=== PATIENT | female | born 1990 | race American Indian/Alaskan Native ===

== ENCOUNTER 2020-03-10 20:19 | Emergency (ER) | payer MEDICAID ==
[2020-03-10] MEDS ORDERED: Sodium Chloride 0.9% 1,000 ML IV ONE (20:33)
[2020-03-10] MEDS ORDERED: Ketorolac 30 MG/ML SDV IVPUSH ONE (20:33)
--- NOTE | 2020-03-10 20:56 | EDM.PDOC ---
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 Stated Complaint: POSSIBLE IUD FALL OUT Time Seen by Provider: 03/10/20 20:55 - Related Data Allergies Allergy/AdvReac Type Severity Reaction Status Date / Time No Known Allergies Allergy Verified 03/10/20 20:31 Home Meds: Home Meds Labetalol [Normodyne] 100 mg PO BID 02/17/18 [History] Prenat 115/Iron Fum/Folic/Dss [ 19 Tablet] 1 tab PO DAILY 02/17/18 [History] levETIRAcetam [Keppra] 1,000 mg PO BID 02/17/18 [History] Ascorbic Acid [Vitamin C] 500 mg PO DAILY 10/20/19 [History] Cholecalciferol (Vitamin D3) [Vitamin D3] 5,000 unit PO DAILY 10/20/19 [History] Copper [Paragard T 380-A] 1 each IUTERINE ONETIME 10/20/19 [History] Iron Carb,Gl/FA/B12/C/Docusate [Ferralet 90 Dual-Iron] 1 tab PO TID 10/20/19 [History] Azithromycin 250 mg PO DAILY #6 tablet 03/11/20 [Rx] ED ROS GENERAL - Review of Systems Review Of Systems: Comprehensive ROS is negative, except as noted in HPI. ED EXAM, GI/ABD - Physical Exam Exam: See Below Text/Narrative:: Physical exam recorded in the HPI Course - Vital Signs Text/Narrative:: 10:49 PM bimanual exam patient has tenderness in the uterus and more tenderness in the right adnexa. Adnexa ill-defined on bimanual exam. I believe I feel the string in the cervix. There is no significant blood or discharge. The patient CT report shows that the adnexa are normal. The patient has a infiltrate in the right lower lobe. With pleuritic nature of her chest pain described by the nurse and no fever and no cough and no white count I have concerned to make sure that this is in fact pneumonia and not a pulmonary embolus. She was told she was high risk and put on aspirin after 1 of her pregnancies. She also has a strong family history of thromboembolic disease. A CT angios ordered. Departure - Departure Time of Disposition: 00:14 Disposition: Home, Self-Care 01 Condition: Good Clinical Impression: Pleurisy Right lower lobe pneumonia Qualifiers: Pneumonia type: due to unspecified organism Qualified Code(s): J18.9 - Pneumonia, unspecified organism - Discharge Information Prescriptions: Azithromycin 250 mg PO DAILY #6 tablet Instructions: Pleurisy, [id number], Community-Acquired Pneumonia, Adult [facility] - Forms: ED Department Discharge Care Plan Goals: Use anti-inflammatory medications such as motrin or ibuprofen. If you have shortness of breath or difficulty breathing, return to the Emergency room. Take antibiotics as directed. The following information is given to patients seen in the emergency department who are being discharged to home. This information is to outline your options for follow-up care. We provide all patients seen in our emergency department with a follow-up referral. The need for follow-up, as well as the timing and circumstances, are variable depending upon the specifics of your emergency department visit. If you don't have a primary care physician on staff, we will provide you with a referral. We always advise you to contact your personal physician following an emergency department visit to inform them of the circumstance of the visit and for follow-up with them and/or the need for any referrals to a consulting specialist. The emergency department will also refer you to a specialist when appropriate. This referral assures that you have the opportunity for follow-up care with a specialist. All of these measure are taken in an effort to provide you with optimal care, which includes your follow-up. Under all circumstances we always encourage you to contact your private physician who remains a resource for coordinating your care. When calling for follow-up care, please make the office aware that this follow-up is from your recent emergency room visit. If for any reason you are refused follow-up, please contact the [facility] at and asked to speak to the emergency department charge nurse. [facility] [address] [place] [address] [address] [address] [address] <Pedro Washington E - Last Filed: 03/11/20 09:52> ED HPI GENERAL MEDICAL PROBLEM - General Source of Information: Reports: Patient History Limitations: Reports: No Limitations - History of Present Illness INITIAL COMMENTS - FREE TEXT/NARRATIVE: HISTORY AND PHYSICAL: History of present illness: Patient is a 29-year-old female who presents to the emergency room with complaints of right lower quadrant pain that radiates to the right upper quadrant. She has had this pain for a few days, worse today. She does have some light vaginal bleeding with concerns that her IUD may be dislodged. She states she had a problem several months ago with her IUD "falling out" and had to have it replaced. She would like this checked today. Patient denies any fever, chills, headache, change in vision, syncope or near syncope. Denies any chest pain, back pain, shortness of breath or cough. Denies any nausea, vomiting, diarrhea, constipation or dysuria. Has not noted any blood in urine or stool. Patient has been eating and drinking appropriately. Review of systems: As per history of present illness and below otherwise all systems reviewed and negative. Past medical history: As per history of present illness and as reviewed below otherwise noncontributory. Surgical history: As per history of present illness and as reviewed below otherwise noncontributory. Social history: See social history for further information Family history: As per history of present illness and as reviewed below otherwise noncontributory. Physical exam: General: Well developed and well nourished 29-year-old female. Alert and orientated x 3. Nontoxic in appearance and in no acute distress. Vital signs are stable and have been reviewed by me. Nursing notes were reviewed. HEENT: Atraumatic, normocephalic, pupils equal and reactive bilaterally, negative for conjunctival pallor or scleral icterus, mucous membranes moist, neck supple, nontender, trachea midline. No drooling or trismus noted. No meningeal signs. No hot potato voice noted. Lungs: Clear to auscultation, breath sounds equal bilaterally, chest nontender. Normal work of breathing, no accessory muscles used. Heart: S1S2, regular rate and rhythm without overt murmur Abdomen: Soft, nondistended, RLQ tender without rebound tenderness. Negative for masses or hepatosplenomegaly. Negative for costovertebral tenderness. Pelvis: Stable nontender. Genitourinary: This was done with consent and a vocational nursing instructor at the bedside. Skin: Intact, warm, dry. No lesions or rashes noted. Hematologic: No petechiae or purpra. Mucosa appropriate color and normal nail bed color and refill. Extremities: Atraumatic, moves all extremities per self without difficulty or deficits, negative for cords or calf pain. Neurovascular unremarkable. Neuro: Awake, alert, oriented. Cranial nerves II through XII unremarkable. Cerebellum unremarkable. Motor and sensory unremarkable throughout. Exam nonfocal. Notes: Dr Son will follow remaining lab work and CT results. Diagnostics: CBC, CMP, Lipase, UA, HCGU, CT abd/pelvis Therapeutics: IV fluids, K-Dur Impression: Abdominal Pain Hypokalemia CAP Pleurisy Definitive disposition and diagnosis as appropriate pending reevaluation and review of above. right sided abdeominal Pain Score (Numeric/FACES): 4 Past Medical History - Past Health History Medical/Surgical History: Denies Medical/Surgical History HEENT History: Reports: Other (See Below) Other HEENT History: wears glasses Cardiovascular History: Reports: Hypertension Respiratory History: Reports: None Gastrointestinal History: Reports: None Genitourinary History: Reports: None PAPER HANDLER History: Reports: Other PAPER HANDLER History: 2 2nd trimester loses Musculoskeletal History: Reports: None Neurological History: Reports: Seizure Other Neuro History: hx of Epilepsy- last seizure was 6 months ago Psychiatric History: Reports: None Endocrine/Metabolic History: Reports: None Hematologic History: Reports: Anticoagulation Therapy, None Other Hematologic History: Taking lovonix sq daily since Immunologic History: Reports: None Oncologic (Cancer) History: Reports: None Dermatologic History: Reports: None - Infectious Disease History Infectious Disease History: Reports: Hepatitis C - Past Surgical History Head Surgeries/Procedures: Reports: None Social & Family History - Family History Family Medical History: Unobtainable Endocrine/Metabolic: Reports: Diabetes, type II - Tobacco Use Smoking Status *Q: Never Smoker - Caffeine Use Caffeine Use: Reports: Soda - Recreational Drug Use Recreational Drug Use: Yes Drug Use in Last 12 Months: Yes Recreational Drug Type: Reports: Marijuana/Hashish Recreational Drug Use Frequency: Daily Course - Vital Signs Last Recorded V/S: Last Vital Signs Temp 97.4 F 03/10/20 20:28 Pulse 98 03/11/20 00:30 Resp 18 03/11/20 00:30 BP 143/97 H 03/11/20 00:30 Pulse Ox 99 03/11/20 00:30 - Orders/Labs/Meds Labs: Laboratory Tests 03/10/20 03/10/20 03/10/20 Range/Units 20:51 20:51 20:51 WBC 6.30 (4.0-11.0) K/uL RBC 3.47 L (4.30-5.90) M/uL Hgb 11.0 L (12.0-16.0) g/dL Hct 33.4 L (36.0-46.0) % MCV 96.3 (80.0-98.0) fL MCH 31.7 (27.0-32.0) pg MCHC 32.9 (31.0-37.0) g/dL RDW Std Deviation 47.6 (28.0-62.0) fl RDW Coeff of Fatimah 14 (11.0-15.0) % Plt Count 236 (150-400) K/uL MPV 10.00 (7.40-12.00) fL Neut % (Auto) 73.5 (48.0-80.0) % Lymph % (Auto) 17.9 (16.0-40.0) % Garland % (Auto) 6.7 (0.0-15.0) % Eos % (Auto) 1.7 (0.0-7.0) % Baso % (Auto) 0.2 (0.0-1.5) % Neut # (Auto) 4.6 (1.4-5.7) K/uL Lymph # (Auto) 1.1 (0.6-2.4) K/uL Garland # (Auto) 0.4 (0.0-0.8) K/uL Eos # (Auto) 0.1 (0.0-0.7) K/uL Baso # (Auto) 0.0 (0.0-0.1) K/uL Nucleated RBC % 0.0 /100WBC Nucleated RBCs # 0 K/uL Sodium 134 L (136-145) mmol/L Potassium 3.2 L (3.5-5.1) mmol/L Chloride 98 (98-107) mmol/L Carbon Dioxide 25.8 (21.0-32.0) mmol/L BUN 15 (7.0-18.0) mg/dL Creatinine 1.1 H (0.6-1.0) mg/dL Est Cr Clr Drug Dosing 71.28 mL/min Estimated GFR (MDRD) 59.1 ml/min Glucose 124 H (74-106) mg/dL Calcium 8.5 (8.5-10.1) mg/dL Total Bilirubin 0.2 (0.2-1.0) mg/dL AST 18 (15-37) IU/L ALT 21 (14-63) IU/L Alkaline Phosphatase 132 H (46-116) U/L Total Protein 7.8 (6.4-8.2) g/dL Albumin 3.1 L (3.4-5.0) g/dL Globulin 4.7 H (2.6-4.0) g/dL Albumin/Globulin Ratio 0.7 L (0.9-1.6) Lipase 176 (73-393) U/L Urine Color Urine Appearance Urine pH (5.0-8.0) Ur Specific [place] (1.001-1.035) Urine Protein (NEGATIVE) mg/dL Urine Glucose (UA) (NEGATIVE) mg/dL Urine Ketones (NEGATIVE) mg/dL Urine Occult Blood (NEGATIVE) Urine Nitrite (NEGATIVE) Urine Bilirubin (NEGATIVE) Urine Urobilinogen (<2.0) EU/dL Ur Leukocyte Esterase (NEGATIVE) Urine RBC (0-2/HPF) Urine WBC (0-5/HPF) Ur Epithelial Cells (NONE-FEW) Urine Bacteria (NEGATIVE) Urine HCG, Qual (NEGATIVE) 03/10/20 03/10/20 Range/Units 21:43 21:43 WBC (4.0-11.0) K/uL RBC (4.30-5.90) M/uL Hgb (12.0-16.0) g/dL Hct (36.0-46.0) % MCV (80.0-98.0) fL MCH (27.0-32.0) pg MCHC (31.0-37.0) g/dL RDW Std Deviation (28.0-62.0) fl RDW Coeff of Fatimah (11.0-15.0) % Plt Count (150-400) K/uL MPV (7.40-12.00) fL Neut % (Auto) (48.0-80.0) % Lymph % (Auto) (16.0-40.0) % Garland % (Auto) (0.0-15.0) % Eos % (Auto) (0.0-7.0) % Baso % (Auto) (0.0-1.5) % Neut # (Auto) (1.4-5.7) K/uL Lymph # (Auto) (0.6-2.4) K/uL Garland # (Auto) (0.0-0.8) K/uL Eos # (Auto) (0.0-0.7) K/uL Baso # (Auto) (0.0-0.1) K/uL Nucleated RBC % /100WBC Nucleated RBCs # K/uL Sodium (136-145) mmol/L Potassium (3.5-5.1) mmol/L Chloride (98-107) mmol/L Carbon Dioxide (21.0-32.0) mmol/L BUN (7.0-18.0) mg/dL Creatinine (0.6-1.0) mg/dL Est Cr Clr Drug Dosing mL/min Estimated GFR (MDRD) ml/min Glucose (74-106) mg/dL Calcium (8.5-10.1) mg/dL Total Bilirubin (0.2-1.0) mg/dL AST (15-37) IU/L ALT (14-63) IU/L Alkaline Phosphatase (46-116) U/L Total Protein (6.4-8.2) g/dL Albumin (3.4-5.0) g/dL Globulin (2.6-4.0) g/dL Albumin/Globulin Ratio (0.9-1.6) Lipase (73-393) U/L Urine Color YELLOW Urine Appearance CLEAR Urine pH 6.0 (5.0-8.0) Ur Specific [place] 1.015 (1.001-1.035) Urine Protein 100 H (NEGATIVE) mg/dL Urine Glucose (UA) NEGATIVE (NEGATIVE) mg/dL Urine Ketones NEGATIVE (NEGATIVE) mg/dL Urine Occult Blood TRACE-INTACT H (NEGATIVE) Urine Nitrite NEGATIVE (NEGATIVE) Urine Bilirubin NEGATIVE (NEGATIVE) Urine Urobilinogen 0.2 (<2.0) EU/dL Ur Leukocyte Esterase NEGATIVE (NEGATIVE) Urine RBC 0-2 (0-2/HPF) Urine WBC 0-1 (0-5/HPF) Ur Epithelial Cells FEW (NONE-FEW) Urine Bacteria RARE (NEGATIVE) Urine HCG, Qual NEGATIVE (NEGATIVE) Meds: Medications Discontinued Medications Generic Name Dose Route Start Last Admin Trade Name Freq PRN Reason Stop Dose Admin Sodium Chloride 1,000 mls @ 999 mls/hr 03/10/20 20:33 03/10/20 20:52 Normal Saline IV 03/10/20 21:33 999 mls/hr STAT ONE Administration Iopamidol 100 ml 03/10/20 22:18 03/10/20 22:19 Isovue-370 (76%) IVPUSH 03/10/20 22:19 100 ml ONETIME ONE Administration Iopamidol 90 ml 03/10/20 23:28 03/10/20 23:29 Isovue-370 (76%) IVPUSH 03/10/20 23:29 90 ml ONETIME ONE Administration Ketorolac Tromethamine 30 mg 03/10/20 20:33 03/10/20 20:52 Toradol IVPUSH 03/10/20 20:34 30 mg ONETIME ONE Administration Potassium Chloride 40 meq 03/10/20 21:25 03/10/20 21:44 Klor-Con M20 PO 03/10/20 21:26 40 meq ONETIME ONE Administration Sepsis Event Note (ED) - Evaluation Sepsis Screening Result: No Definite Risk - Focused Exam Vital Signs: Vital Signs Pulse Resp BP Pulse Ox 03/11/20 00:30 98 18 143/97 H 99 03/10/20 23:00 92 20 138/87 98 03/10/20 22:00 100 20 139/96 H 98
[2020-03-10 21:20] LABS: CARBON DIOXIDE,CO2 25.8 mmol/L (21.0-32.0); POTASSIUM,K 3.2 mmol/L (3.5-5.1)
[2020-03-10] MEDS ORDERED: Potassium Chloride 20 MEQ Tab.ER PO ONE (21:25)
[2020-03-10] MEDS ORDERED: Iopamidol 755 Mg/ML 100 ML Bottle IVPUSH ONE ×2 (22:18→23:28)
--- NOTE | 2020-03-10 23:00 | CT ---
INDICATION: Right lower quadrant pain, IUD placement TECHNIQUE: CT abdomen and pelvis acquired with IV contrast. As 100 cc Isovue 370 COMPARISON: None FINDINGS: Lower chest: Right lower lobe airspace opacity worrisome for pneumonia. Liver: Unremarkable. Spleen: Unremarkable. Pancreas: Unremarkable. Gallbladder and bile ducts: Unremarkable. Kidneys: Unremarkable. Adrenal glands: Unremarkable. GI tract: Diffuse colonic fecal retention. Appendix is normal. Vascular structures: Unremarkable. Lymph nodes: Unremarkable. Miscellaneous: Unremarkable. No free air or significant free fluid. Pelvic Organs: IUD present in the endometrial canal. Bones: Unremarkable for age. IMPRESSION: Right lower lobe there is passively consistent with pneumonia. Normal appearing appendix. IUD present in the endometrial canal. Diffuse colonic fecal retention. Dictated by Keshawn Hayden MD @ 03/10/2020 10:59:11 PM Please note that all CT scans at this facility use dose modulation, iterative reconstruction, and/or weight-based dosing when appropriate to reduce radiation dose to as low as reasonably achievable. Dictated by: Keshawn Hayden MD @ 03/10/2020 22:59:19 (Electronically Signed)
--- NOTE | 2020-03-11 00:07 | CT ---
INDICATION: Right lower lobe infiltrate TECHNIQUE: CT chest PE was acquired with 90 cc Isovue 370 intravenous contrast. COMPARISON: None. FINDINGS: Heart and vasculature: Contrast opacification of the pulmonary arterial tree is adequate. No sign of pulmonary embolism. Heart size is normal. Thoracic aorta and pulmonary artery are normal in caliber. Lungs and pleural: No pneumothorax or pleural effusion. Mild nonspecific ground-glass opacities with dense airspace consolidation in the right lower lobe posterior segment. Lymph nodes/mediastinum: Subcentimeter mediastinal lymph nodes. Chest wall: No masses. Upper abdomen: Normal. Bones: Unremarkable for age. IMPRESSION: 1. No evidence of pulmonary embolus. 2. Mild lower lobe ground-glass opacities with dense area of consolidation within the posterior segment of the right lower lobe. Appearance is consistent with pneumonia. Favor a bacterial pneumonia with ground-glass opacities a bit more likely to represent subsegmental atelectasis although viral pneumonia not entirely excluded. Please note that all CT scans at this facility use dose modulation, iterative reconstruction, and/or weight-based dosing when appropriate to reduce radiation dose to as low as reasonably achievable. Dictated by Anderson Mora MD @ Mar 10 2020 11:56PM Signed by Dr. Anderson Mora @ Mar 11 2020 12:06AM
== END 2020-03-11 00:31 | disposition home or self-care (01) ==
LOC: MW.ED 20:19
DX: J18.9 Pneumonia, unspecified organism (principal); E87.6 Hypokalemia; R10.31 Right lower quadrant pain; R09.1 Pleurisy; N93.9 Abnormal uterine and vaginal bleeding, unspecified; I10 Essential (primary) hypertension; G40.909 Epilepsy, unspecified, not intractable, without status epilepticus; Z79.01 Long term (current) use of anticoagulants; Z79.899 Other long term (current) drug therapy
CPT/HCPCS: 36415; 71275; 74177; 80053; 81001; 81025; 83690; 85025; 96361; 96374; 99284; A9270; J1885; J7030; Q9967; 99283

== ENCOUNTER 2020-03-11 19:28 | Observation (INO) | payer MEDICAID, OTHER ==
[2020-03-11] MEDS ORDERED: Ketorolac 60 MG/2 ML SDV IM ONE (19:47)
[2020-03-11] MEDS ORDERED: Sodium Chloride 0.9% 1,000 ML IV ONE (19:51)
[2020-03-11] MEDS ORDERED: Ketorolac 30 MG/ML SDV IVPUSH ONE (19:52)
--- NOTE | 2020-03-11 20:08 | EDM.PDOC ---
ED HPI GENERAL MEDICAL PROBLEM - General Chief Complaint: Respiratory Problem Stated Complaint: TROUBLE BREATHING Time Seen by Provider: 03/11/20 19:44 Source of Information: Reports: Patient History Limitations: Reports: No Limitations - History of Present Illness INITIAL COMMENTS - FREE TEXT/NARRATIVE: HISTORY AND PHYSICAL: History of present illness: Patient is a 29-year-old female who presents to the emergency room with complaints of shortness of breath, fever, right lower lobe pneumonia/lung pain. She was seen yesterday in our emergency room for right lower quadrant pain that radiated into her right upper quadrant/chest area. It was identified that she had a right lower lobe lobe pneumonia and she was started on antibiotics. She states that the lung pain has not improved and she is concerned she may have COVID. Patient denies any headache, change in vision, syncope or near syncope. Denies any chest pain, back pain, abdominal pain, nausea, vomiting, diarrhea, constipation or dysuria. Has not noted any blood in urine or stool. Patient has been eating and drinking appropriately. Review of systems: As per history of present illness and below otherwise all systems reviewed and negative. Past medical history: As per history of present illness and as reviewed below otherwise noncontributory. Surgical history: As per history of present illness and as reviewed below otherwise noncontributory. Social history: See social history for further information Family history: As per history of present illness and as reviewed below otherwise noncontributo ry. Physical exam: General: Well developed and well nourished. Alert and orientated x 3. Nontoxic in appearance and in no acute distress. Vital signs are stable and have been reviewed by me. Nursing notes were reviewed. HEENT: Atraumatic, normocephalic, pupils equal and reactive bilaterally, negative for conjunctival pallor or scleral icterus, mucous membranes moist, TMs normal bilaterally, throat clear, neck supple, nontender, trachea midline. No drooling or trismus noted. No meningeal signs. No hot potato voice noted. Lungs: Clear to auscultation, breath sounds equal bilaterally, chest nontender. Normal work of breathing, no accessory muscles used. Heart: S1S2, regular rate and rhythm without overt murmur Abdomen: Soft, nondistended, nontender. Negative for masses or hepatosplenomegal y. Negative for costovertebral tenderness. Skin: Intact, warm, dry. No lesions or rashes noted. Hematologic: No petechiae or purpra. Mucosa appropriate color and normal nail bed color and refill. Extremities: Atraumatic, moves all extremities per self without difficulty or deficits, negative for cords or calf pain. Neurovascular unremarkable. Neuro: Awake, alert, oriented. Cranial nerves II through XII unremarkable. Cerebellum unremarkable. Motor and sensory unremarkable throughout. Exam nonfocal. Psychiatric: Mood and affect are appropriate. Normal thought process. Answering questions appropriately. Notes: 03/10/[address] angio-chest. No evidence of pulmonary embolism. Mild lower lobe groundglass opacities with dense area of consolidation within the posterior segment of the right lower lobe. Appearance is consistent with pneumonia. Although viral pneumonia cannot be entirely excluded. Her lab work was unremarkable. As the patient just had a CTA of her chest yesterday I do not feel she needs any repeated imaging. Basic lab work was repeated today along with a COVID screening. These are unremarkable. She received a liter of IV fluids and does feel improved. Her vital signs have improved as well although she is still slightly tachycardic. I have spoken with the patient/caregiver and discussed today's findings, in addition to providing specific details for plan of care. Reassessment at the time of disposition demonstrates that the patient is in no acute distress. We did discuss admission which she declines. The patient is stable for discharge, counseling was provided, and we discussed in great detail signs and symptoms that would prompt them to return to the Emergency Department. Medication, follow up and supportive care measures were reviewed and discussed. Voices understanding and is agreeable to plan of care. Denies any further questions or concerns at this time. Diagnostics: CBC, BM P, lactate, blood cultures, COVID-19 Therapeutics: Toradol IM, NS, prednisone, pro-air inhaler Prescription: Prednisone Impression: Pneumonia Plan: 1. Today your lab work is unremarkable/stable. Negative COVID screening. 2. Continue taking your antibiotic as prescribed. Prednisone, a steroid, has been prescribed you can start this tomorrow. Use the pro-air inhaler 2 puffs every 4-6 hours as needed for shortness of breath. 3. We encourage you to follow up with your primary care provider and/or recommended specialist in the next few days for re-evaluation and further care/management. If your symptoms should worsen, new symptoms develop or any of the signs and symptoms we discussed should arise please return to the emergency room or call 911 (if needed). Definitive disposition and diagnosis as appropriate pending reevaluation and review of above. right ribs/chest Pain Score (Numeric/FACES): 5 - Related Data Allergies Allergy/AdvReac Type Severity Reaction Status Date / Time No Known Allergies Allergy Verified 03/11/20 19:35 Home Meds: Home Meds Labetalol [Normodyne] 100 mg PO BID 02/17/18 [History] Prenat 115/Iron Fum/Folic/Dss [ 19 Tablet] 1 tab PO DAILY 02/17/18 [History] levETIRAcetam [Keppra] 1,000 mg PO BID 02/17/18 [History] Ascorbic Acid [Vitamin C] 500 mg PO DAILY 10/20/19 [History] Cholecalciferol (Vitamin D3) [Vitamin D3] 5,000 unit PO DAILY 10/20/19 [History] Copper [Paragard T 380-A] 1 each IUTERINE ONETIME 10/20/19 [History] Iron Carb,Gl/FA/B12/C/Docusate [Ferralet 90 Dual-Iron] 1 tab PO TID 10/20/19 [History] Aspirin 81 mg PO DAILY 03/11/20 [History] Azithromycin 250 mg PO DAILY #6 tablet 03/11/20 [Rx] predniSONE [Prednisone] 40 mg PO DAILY 3 Days #6 tablet 03/11/20 [Rx] Past Medical History - Past Health History Medical/Surgical History: Denies Medical/Surgical History HEENT History: Reports: Other (See Below) Other HEENT History: wears glasses Cardiovascular History: Reports: Hypertension Respiratory History: Reports: None Gastrointestinal History: Reports: None Genitourinary History: Reports: None CLINICAL DOCUMENTATION MANAGER History: Reports: Other CLINICAL DOCUMENTATION MANAGER History: 2 2nd trimester loses Musculoskeletal History: Reports: None Neurological History: Reports: Seizure Other Neuro History: hx of Epilepsy- last seizure was 6 months ago Psychiatric History: Reports: None Endocrine/Metabolic History: Reports: None Hematologic History: Reports: Anticoagulation Therapy, None Other Hematologic History: Taking lovonix sq daily since Immunologic History: Reports: None Oncologic (Cancer) History: Reports: None Dermatologic History: Reports: None - Infectious Disease History Infectious Disease History: Reports: Hepatitis C - Past Surgical History Head Surgeries/Procedures: Reports: None Social & Family History - Family History Family Medical History: Unobtainable Endocrine/Metabolic: Reports: Diabetes, type II - Tobacco Use Smoking Status *Q: Never Smoker - Caffeine Use Caffeine Use: Reports: Soda - Recreational Drug Use Recreational Drug Use: Yes Drug Use in Last 12 Months: Yes Recreational Drug Type: Reports: Marijuana/Hashish Recreational Drug Use Frequency: Daily ED ROS GENERAL - Review of Systems Review Of Systems: Comprehensive ROS is negative, except as noted in HPI. ED EXAM, GENERAL - Physical Exam Exam: See Below (See dication) Course - Vital Signs Last Recorded V/S: Last Vital Signs Temp 100.5 F 03/11/20 19:32 Pulse 120 H 03/11/20 19:32 Resp 18 03/11/20 21:16 BP 130/83 03/11/20 21:16 Pulse Ox 98 03/11/20 21:16 - Orders/Labs/Meds Orders: Active Orders 24 hr Category Date Time Status RT Post Treatment Assessment [RC] Click to Edit Care 03/11/20 21:04 Active RT Pre-Treatment Assessment [RC] Click to Edit Care 03/11/20 21:04 Active CULTURE BLOOD [BC] Stat Lab 03/11/20 20:09 Received CULTURE BLOOD [BC] Stat Lab 03/11/20 20:31 Received Blood Culture x2 Reflex Set [OM.PC] Stat Oth 03/11/20 19:51 Ordered Labs: Laboratory Tests 03/11/20 03/11/20 03/11/20 Range/Units 20:01 20:09 20:09 WBC 6.29 (4.0-11.0) K/uL RBC 3.33 L (4.30-5.90) M/uL Hgb 10.8 L (12.0-16.0) g/dL Hct 32.4 L (36.0-46.0) % MCV 97.3 (80.0-98.0) fL MCH 32.4 H (27.0-32.0) pg MCHC 33.3 (31.0-37.0) g/dL RDW Std Deviation 45.1 (28.0-62.0) fl RDW Coeff of Fatimah 13 (11.0-15.0) % Plt Count 217 (150-400) K/uL MPV 10.10 (7.40-12.00) fL Add Manual Diff YES Neutrophils % (Manual) 77 (48.0-80.0) % Band Neutrophils % 6 % Lymphocytes % (Manual) 12 L (16.0-40.0) % Monocytes % (Manual) 3 (0.0-15.0) % Eosinophils % (Manual) 2 (0.0-7.0) % Absolute Seg Neuts 4.8 (1.4-5.7) Band Neutrophils # 0.4 Lymphocytes # (Manual) 0.8 (0.6-2.4) Monocytes # (Manual) 0.2 (0.0-0.8) Eosinophils # (Manual) 0.1 (0.0-0.7) Lactate (0.20-2.00) mmol/L Sodium 132 L (136-145) mmol/L Potassium 4.1 (3.5-5.1) mmol/L Chloride 100 (98-107) mmol/L Carbon Dioxide 25.4 (21.0-32.0) mmol/L BUN 12 (7.0-18.0) mg/dL Creatinine 1.2 H (0.6-1.0) mg/dL Est Cr Clr Drug Dosing 65.34 mL/min Estimated GFR (MDRD) 53.5 ml/min Glucose 100 (74-106) mg/dL Calcium 8.6 (8.5-10.1) mg/dL SARS Virus RNA (PCR) NEGATIVE (NEGATIVE) 03/11/20 Range/Units 20:09 WBC (4.0-11.0) K/uL RBC (4.30-5.90) M/uL Hgb (12.0-16.0) g/dL Hct (36.0-46.0) % MCV (80.0-98.0) fL MCH (27.0-32.0) pg MCHC (31.0-37.0) g/dL RDW Std Deviation (28.0-62.0) fl RDW Coeff of Fatimah (11.0-15.0) % Plt Count (150-400) K/uL MPV (7.40-12.00) fL Add Manual Diff Neutrophils % (Manual) (48.0-80.0) % Band Neutrophils % % Lymphocytes % (Manual) (16.0-40.0) % Monocytes % (Manual) (0.0-15.0) % Eosinophils % (Manual) (0.0-7.0) % Absolute Seg Neuts (1.4-5.7) Band Neutrophils # Lymphocytes # (Manual) (0.6-2.4) Monocytes # (Manual) (0.0-0.8) Eosinophils # (Manual) (0.0-0.7) Lactate 0.7 (0.20-2.00) mmol/L Sodium (136-145) mmol/L Potassium (3.5-5.1) mmol/L Chloride (98-107) mmol/L Carbon Dioxide (21.0-32.0) mmol/L BUN (7.0-18.0) mg/dL Creatinine (0.6-1.0) mg/dL Est Cr Clr Drug Dosing mL/min Estimated GFR (MDRD) ml/min Glucose (74-106) mg/dL Calcium (8.5-10.1) mg/dL SARS Virus RNA (PCR) (NEGATIVE) Meds: Medications Discontinued Medications Generic Name Dose Route Start Last Admin Trade Name Lionq PRN Reason Stop Dose Admin Acetaminophen 1,000 mg 03/11/20 21:22 Tylenol Extra Strength PO 03/11/20 21:23 ONETIME ONE Albuterol 1 gm 03/11/20 21:03 Ventolin Hfa INH 03/11/20 21:04 ONETIME ONE Albuterol Confirm 03/11/20 21:09 03/11/20 21:15 Ventolin Hfa Administered 03/11/20 21:10 1 inh Dose Administration 18 gm .ROUTE .STK-MED ONE Sodium Chloride 1,000 mls @ 999 mls/hr 03/11/20 19:51 03/11/20 20:12 Normal Saline IV 03/11/20 20:51 999 mls/hr STAT ONE Administration Ketorolac Tromethamine 60 mg 03/11/20 19:47 03/11/20 20:12 Toradol IM 03/11/20 19:48 Not Given ONETIME ONE Ketorolac Tromethamine 30 mg 03/11/20 19:52 03/11/20 20:11 Toradol IVPUSH 03/11/20 19:53 30 mg ONETIME ONE Administration Prednisone 40 mg 03/11/20 21:03 03/11/20 21:14 Prednisone PO 03/11/20 21:04 40 mg ONETIME ONE Administration Departure - Departure Time of Disposition: 21:23 Disposition: Home, Self-Care 01 Clinical Impression: Pneumonia Qualifiers: Pneumonia type: due to unspecified organism - Discharge Information Prescriptions: predniSONE [Prednisone] 40 mg PO DAILY 3 Days #6 tablet Instructions: Community-Acquired Pneumonia, Adult, [id number] Referrals: PCP,Not In Area [Primary Care Provider] - Forms: ED Department Discharge Additional Instructions: The following information is given to patients seen in the emergency department who are being discharged to home. This information is to outline your options for follow-up care. We provide all patients seen in our emergency department with a follow-up referral. The need for follow-up, as well as the timing and circumstances, are variable depending upon the specifics of your emergency department visit. If you don't have a primary care physician on staff, we will provide you with a referral. We always advise you to contact your personal physician following an emergency department visit to inform them of the circumstance of the visit and for follow-up with them and/or the need for any referrals to a consulting specialist. The emergency department will also refer you to a specialist when appropriate. This referral assures that you have the opportunity for follow-up care with a specialist. All of these measure are taken in an effort to provide you with optimal care, which includes your follow-up. Under all circumstances we always encourage you to contact your private physician who remains a resource for coordinating your care. When calling for follow-up care, please make the office aware that this follow-up is from your recent emergency room visit. If for any reason you are refused follow-up, please contact the [facility] Emergency Department at and asked to speak to the emergency department charge nurse. [facility] [address] [place] [id number] [address] Thank you for choosing the [facility] emergency department in [place] for your medical needs today. It was a pleasure caring for you. Today you were seen in the emergency department for pneumonia. 1. Today your lab work is unremarkable/stable. Negative COVID screening. 2. Continue taking your antibiotic as prescribed. Prednisone, a steroid, has been prescribed you can start this tomorrow. Use the pro-air inhaler 2 puffs every 4-6 hours as needed for shortness of breath. 3. We encourage you to follow up with your primary care provider and/or recommended specialist in the next few days for re-evaluation and further care/management. If your symptoms should worsen, new symptoms develop or any of the signs and symptoms we discussed should arise please return to the emergency room or call 911 (if needed). Sepsis Event Note (ED) - Evaluation Sepsis Screening Result: Possible Sepsis Risk - Focused Exam Vital Signs: Vital Signs Temp Pulse Resp BP Pulse Ox 03/11/20 21:16 18 130/83 98 03/11/20 19:32 100.5 F 120 H 24 H 137/86 100 - My Orders Last 24 Hours: My Active Orders 03/11/20 19:51 Blood Culture x2 Reflex Set [OM.PC] Stat 03/11/20 20:09 CULTURE BLOOD [BC] Stat 03/11/20 20:31 CULTURE BLOOD [BC] Stat 03/11/20 21:04 RT Post Treatment Assessment [RC] Click to Edit RT Pre-Treatment Assessment [RC] Click to Edit - Assessment/Plan Last 24 Hours: My Active Orders 03/11/20 19:51 Blood Culture x2 Reflex Set [OM.PC] Stat 03/11/20 20:09 CULTURE BLOOD [BC] Stat 03/11/20 20:31 CULTURE BLOOD [BC] Stat 03/11/20 21:04 RT Post Treatment Assessment [RC] Click to Edit RT Pre-Treatment Assessment [RC] Click to Edit
[2020-03-11 20:25] LABS: CARBON DIOXIDE,CO2 25.4 mmol/L (21.0-32.0); POTASSIUM,K 4.1 mmol/L (3.5-5.1)
[2020-03-11] MEDS ORDERED: Albuterol 8 GM Inhaler INH ONE (21:03)
[2020-03-11] MEDS ORDERED: predniSONE 20 MG Tab PO ONE (21:03)
[2020-03-11] MEDS ORDERED: Albuterol HFA 18 Gm Inhaler ONE (21:09)
[2020-03-11] MEDS ORDERED: Acetaminophen 500 MG Tab PO ONE (21:22)
[2020-03-11] MEDS ORDERED: Acetaminophen 500 MG Tab ONE (21:24)
--- NOTE | 2020-03-11 22:48 | CR ---
INDICATION: Pneumonia TECHNIQUE: Chest radiograph 1 view COMPARISON: None FINDINGS: Moderate degradation of image quality noted due to body habitus. Mediastinum: The mediastinum is normal in appearance. The heart silhouette is normal in size and morphology. Lung: Focal airspace consolidation is present in the right lung base which may be due to pneumonia aspiration. No sign of pleural effusion seen. No pneumothorax is identified. Bone and Soft tissue: Unremarkable for age. IMPRESSION: 1. Focal airspace consolidation is present in the right lung base which may be due to pneumonia aspiration. Dictated by Drew Lpoez MD @ 03/11/2020 10:46:04 PM Dictated by: Drew Lopez MD @ 03/11/2020 22:46:06 (Electronically Signed)
--- NOTE | 2020-03-12 00:07 | PCM.HP.2 ---
H&P History of Present Illness - General Date of Service: 03/12/20 Admit Problem/Dx: Admission Diagnosis/Problem Admission Diagnosis/Problem Pneumonia - History of Present Illness Initial Comments - Free Text/Narative: 29 yo female with pmh of seizure disorder who presents with two day history of productive cough, shortness of breath, fevers and chills. She was seen in the ED yesterday and found to have a right lower lob pneumonia on CT scan. She was discharged home on azithromycin. She presents to the ED tonight complaining of worsening shortness of breath. She is sating 98-100% on RA. ED physician re commended admission for treatment of pneumonia. right ribs/chest Pain Score (Numeric/FACES): 5 - Related Data Allergies/Adverse Reactions: Allergies Allergy/AdvReac Type Severity Reaction Status Date / Time No Known Allergies Allergy Verified 03/11/20 23:46 Home Medications: Home Meds Labetalol [Normodyne] 100 mg PO BID 02/17/18 [History] Prenat 115/Iron Fum/Folic/Dss [ 19 Tablet] 1 tab PO DAILY 02/17/18 [History] levETIRAcetam [Keppra] 1,000 mg PO BID 02/17/18 [History] Ascorbic Acid [Vitamin C] 500 mg PO DAILY 10/20/19 [History] Cholecalciferol (Vitamin D3) [Vitamin D3] 5,000 unit PO DAILY 10/20/19 [History] Iron Carb,Gl/FA/B12/C/Docusate [Ferralet 90 Dual-Iron] 1 tab PO TID 10/20/19 [History] Aspirin 81 mg PO DAILY 03/11/20 [History] predniSONE [Prednisone] 40 mg PO DAILY 3 Days #6 tablet 03/11/20 [Rx] levoFLOXacin [Levaquin] 750 mg PO DAILY 4 Days #4 tab 03/12/20 [Rx] Past Medical History - Past Health History Medical/Surgical History: Denies Medical/Surgical History HEENT History: Reports: Other (See Below) Other HEENT History: wears glasses Cardiovascular History: Reports: Hypertension Respiratory History: Reports: None Gastrointestinal History: Reports: None Genitourinary History: Reports: None [employer] History: Reports: Other OB/BYN History: 2 2nd trimester loses Musculoskeletal History: Reports: None Neurological History: Reports: Seizure Other Neuro History: hx of Epilepsy- last seizure was 6 months ago Psychiatric History: Reports: None Endocrine/Metabolic History: Reports: None Hematologic History: Reports: Anticoagulation Therapy, None Other Hematologic History: Taking lovonix sq daily since Immunologic History: Reports: None Oncologic (Cancer) History: Reports: None Dermatologic History: Reports: None - Infectious Disease History Infectious Disease History: Reports: Hepatitis C - Past Surgical History Head Surgeries/Procedures: Reports: None Social & Family History - Family History Family Medical History: Unobtainable Endocrine/Metabolic: Reports: Diabetes, type II - Tobacco Use Smoking Status *Q: Never Smoker - Caffeine Use Caffeine Use: Reports: Soda - Recreational Drug Use Recreational Drug Use: Yes Drug Use in Last 12 Months: Yes Recreational Drug Type: Reports: Marijuana/Hashish Recreational Drug Use Frequency: Daily H&P Review of Systems - Review of Systems: Review Of Systems: Comprehensive ROS is negative, except as noted in HPI. Exam - Exam Exam: See Below - Vital Signs Vital Signs: Last Vital Signs Temp 37.7 C 03/11/20 22:45 Pulse 90 03/11/20 22:45 Resp 20 03/11/20 22:45 BP 130/83 03/11/20 21:16 Pulse Ox 97 03/11/20 22:45 Weight: 78.018 kg - Exam General: Alert, Oriented HEENT: Mucosa Moist & [place] Neck: Supple Lungs: Clear to Auscultation, Normal Respiratory Effort GI/Abdominal Exam: Soft, Non-Tender, No Distention Extremities: Non-Tender, No Pedal Edema Skin: Warm, Dry, Intact Neurological: No: Focal Deficit - Patient Data Lab Results Last 24 hrs: Laboratory Results - last 24 hr 03/11/20 03/11/20 03/11/20 Range/Units 20:01 20:09 20:09 WBC 6.29 (4.0-11.0) K/uL RBC 3.33 L (4.30-5.90) M/uL Hgb 10.8 L (12.0-16.0) g/dL Hct 32.4 L (36.0-46.0) % MCV 97.3 (80.0-98.0) fL MCH 32.4 H (27.0-32.0) pg MCHC 33.3 (31.0-37.0) g/dL RDW Std Deviation 45.1 (28.0-62.0) fl RDW Coeff of Fatimah 13 (11.0-15.0) % Plt Count 217 (150-400) K/uL MPV 10.10 (7.40-12.00) fL Add Manual Diff YES Neutrophils % (Manual) 77 (48.0-80.0) % Band Neutrophils % 6 % Lymphocytes % (Manual) 12 L (16.0-40.0) % Monocytes % (Manual) 3 (0.0-15.0) % Eosinophils % (Manual) 2 (0.0-7.0) % Absolute Seg Neuts 4.8 (1.4-5.7) Band Neutrophils # 0.4 Lymphocytes # (Manual) 0.8 (0.6-2.4) Monocytes # (Manual) 0.2 (0.0-0.8) Eosinophils # (Manual) 0.1 (0.0-0.7) ESR (0-19) mm/hr Lactate (0.20-2.00) mmol/L Sodium 132 L (136-145) mmol/L Potassium 4.1 (3.5-5.1) mmol/L Chloride 100 (98-107) mmol/L Carbon Dioxide 25.4 (21.0-32.0) mmol/L BUN 12 (7.0-18.0) mg/dL Creatinine 1.2 H (0.6-1.0) mg/dL Est Cr Clr Drug Dosing 65.34 mL/min Estimated GFR (MDRD) 53.5 ml/min Glucose 100 (74-106) mg/dL Calcium 8.6 (8.5-10.1) mg/dL SARS Virus RNA (PCR) NEGATIVE (NEGATIVE) 03/11/20 03/11/20 Range/Units 20:09 20:09 WBC (4.0-11.0) K/uL RBC (4.30-5.90) M/uL Hgb (12.0-16.0) g/dL Hct (36.0-46.0) % MCV (80.0-98.0) fL MCH (27.0-32.0) pg MCHC (31.0-37.0) g/dL RDW Std Deviation (28.0-62.0) fl RDW Coeff of Fatimah (11.0-15.0) % Plt Count (150-400) K/uL MPV (7.40-12.00) fL Add Manual Diff Neutrophils % (Manual) (48.0-80.0) % Band Neutrophils % % Lymphocytes % (Manual) (16.0-40.0) % Monocytes % (Manual) (0.0-15.0) % Eosinophils % (Manual) (0.0-7.0) % Absolute Seg Neuts (1.4-5.7) Band Neutrophils # Lymphocytes # (Manual) (0.6-2.4) Monocytes # (Manual) (0.0-0.8) Eosinophils # (Manual) (0.0-0.7) ESR 99 H (0-19) mm/hr Lactate 0.7 (0.20-2.00) mmol/L Sodium (136-145) mmol/L Potassium (3.5-5.1) mmol/L Chloride (98-107) mmol/L Carbon Dioxide (21.0-32.0) mmol/L BUN (7.0-18.0) mg/dL Creatinine (0.6-1.0) mg/dL Est Cr Clr Drug Dosing mL/min Estimated GFR (MDRD) ml/min Glucose (74-106) mg/dL Calcium (8.5-10.1) mg/dL SARS Virus RNA (PCR) (NEGATIVE) Result Diagrams: 03/12/20 05:53 03/12/20 05:53 Sepsis Event Note - Evaluation Sepsis Screening Result: Possible Sepsis Risk - Focused Exam Vital Signs: Vital Signs Temp Temp Temp Pulse Resp BP Pulse Ox 03/11/20 22:45 37.7 C 90 20 97 03/11/20 21:26 37.8 C 03/11/20 21:16 18 130/83 98 03/11/20 19:32 38.1 C 120 H 24 H 137/86 100 Problem List Initiated/Reviewed/Updated: Yes Orders Last 24hrs: Active Orders 24 hr Category Date Time Status Admission Status [Patient Status] [ADT] Stat ADT 03/11/20 22:29 Active Antiembolic Devices [RC] PER UNIT ROUTINE Care 03/12/20 00:01 Ordered Oxygen Therapy [RC] PRN Care 03/12/20 00:01 Ordered RT Post Treatment Assessment [RC] Click to Edit Care 03/11/20 21:04 Active RT Pre-Treatment Assessment [RC] Click to Edit Care 03/11/20 21:04 Active Up ad Linda [RC] ASDIRECTED Care 03/12/20 00:01 Ordered VTE/DVT Education [RC] PER UNIT ROUTINE Care 03/12/20 00:01 Ordered Vital Signs [RC] Q4H Care 03/12/20 00:01 Ordered Regular Diet [DIET] Diet 03/12/20 Breakfast Ordered BASIC METABOLIC PANEL,BMP [CHEM] AM Lab 03/12/20 05:11 Ordered CBC W/O DIFF,HEMOGRAM [HEME] AM Lab 03/12/20 05:11 Ordered CULTURE BLOOD [BC] Stat Lab 03/11/20 20:09 Received CULTURE BLOOD [BC] Stat Lab 03/11/20 20:31 Received CULTURE SPUTUM + SMEAR [RM] Stat Lab 03/11/20 22:22 Ordered DRUG SCREEN, URINE [URCHEM] Stat Lab 03/11/20 23:03 Ordered UA RFX LEATHA AND CULT IF INDIC [URIN] Routine Lab 03/11/20 23:03 Ordered Aspirin Med 03/12/20 09:00 Ordered 81 mg PO DAILY Enoxaparin [Lovenox] Med 03/12/20 00:15 Ordered 40 mg SUBCUT Q24H Labetalol [Normodyne] Med 03/12/20 00:00 Ordered 100 mg PO BID Levofloxacin/Dextrose 5%-Water [Levaquin in D5W 750 MG/ Med 03/12/20 00:15 Active 150 ML] 750 mg Premix Bag 1 bag IV ONETIME Levofloxacin/Dextrose 5%-Water [Levaquin in D5W 750 MG/ Med 03/11/20 23:45 Ordered 150 ML] 750 mg Premix Bag 1 bag IV Q24H levETIRAcetam [Keppra] Med 03/12/20 00:00 Ordered 1,000 mg PO BID Blood Culture x2 Reflex Set [OM.PC] Stat Oth 03/11/20 19:51 Ordered Sequential Compression Device [OM.PC] Per Unit Routine Oth 03/12/20 00:01 Ordered Resuscitation Status Routine Resus Stat 03/12/20 00:01 Ordered Medication Orders Aspirin (Aspirin) 81 mg PO DAILY [facility] Enoxaparin Sodium (Lovenox) 40 mg SUBCUT Q24H [facility] Levofloxacin/Dextrose 750 mg/ (Premix) 150 mls @ 100 mls/hr IV Q24H [facility] Levofloxacin/Dextrose 750 mg/ (Premix) 150 mls @ 100 mls/hr IV ONETIME ONE Stop: 03/12/20 01:44 Labetalol HCl (Normodyne) 100 mg PO BID [facility] Levetiracetam (Keppra) 1,000 mg PO BID [facility] Assessment/Plan Comment:: 29 yo female admitted for treatment of community acquired pneumonia. COVID is negative. We will treat with Levaquin and monitor overnight.
[2020-03-12] MEDS ORDERED: Enoxaparin 40 MG/0.4 ML Syringe SUBCUT ONE (00:15)
[2020-03-12] MEDS ORDERED: Levofloxacin/Dextrose 5%-Water 750 MG in Premix Bag 1 BAG IV ONE (00:15)
[2020-03-12] MEDS: levETIRAcetam 500 MG Tab PO SCH ×2 (00:37→08:48)
[2020-03-12] MEDS: Labetalol 100 MG Tab PO SCH ×2 (00:37→08:48)
[2020-03-12 06:46] LABS: BLOOD UREA NITROGEN,BUN 13 mg/dL (7.0-18.0); CARBON DIOXIDE,CO2 22.8 mmol/L (21.0-32.0); CHLORIDE,CL 105 mmol/L (98-107); GLUCOSE RANDOM 134 mg/dL (74-106); POTASSIUM,K 4.3 mmol/L (3.5-5.1); SODIUM,NA 138 mmol/L (136-145)
[2020-03-12] MEDS ORDERED: Aspirin 81 MG Tab.Chew PO SCH (09:00)
--- NOTE | 2020-03-12 11:31 | PCM.DCSUM1 ---
<Subhash Petit - Last Filed: 03/12/20 13:17> Discharge Summary - Hospital Course Free Text/Narrative:: 29 yr old female admitted for pneumonia. She states that she was having SOB with pain in her back. Patient was seen in the ED two days prior for SOB and chest pain. At that time the patient was diagnosed with pneumonia and treated with azithromycin and discharged home. Patient states that her SOB and chest pain got worse and she re-presented to the ED the next day. Patient was admitted ov [facility] and monitored. The flowing morning patient states that she fell much better. Her SOB has resolved and she had no complaints of chest pain. On discharge patients labs noted a WBC of 4.1 RR of 14 and and patient remained afebrile during admission. Patient discharged on Levaquin antibiotics. - Discharge Data Discharge Date: 03/12/20 Discharge Disposition: Home, Self-Care 01 Condition: Stable - Referral to Home Health Primary Care Physician: PCP Not In Area - Discharge Plan *PRESCRIPTION DRUG MONITORING PROGRAM REVIEWED*: No *COPY OF PRESCRIPTION DRUG MONITORING REPORT IN PATIENT DIANE: No Prescriptions/Med Rec: levoFLOXacin [Levaquin] 750 mg PO DAILY 4 Days #4 tab predniSONE [Prednisone] 40 mg PO DAILY 3 Days #6 tablet Home Medications: Home Meds Labetalol [Normodyne] 100 mg PO BID 02/17/18 [History] Prenat 115/Iron Fum/Folic/Dss [ 19 Tablet] 1 tab PO DAILY 02/17/18 [History] levETIRAcetam [Keppra] 1,000 mg PO BID 02/17/18 [History] Ascorbic Acid [Vitamin C] 500 mg PO DAILY 10/20/19 [History] Cholecalciferol (Vitamin D3) [Vitamin D3] 5,000 unit PO DAILY 10/20/19 [History] Iron Carb,Gl/FA/B12/C/Docusate [Ferralet 90 Dual-Iron] 1 tab PO TID 10/20/19 [History] Aspirin 81 mg PO DAILY 03/11/20 [History] predniSONE [Prednisone] 40 mg PO DAILY 3 Days #6 tablet 03/11/20 [Rx] levoFLOXacin [Levaquin] 750 mg PO DAILY 4 Days #4 tab 03/12/20 [Rx] Patient Handouts: Levofloxacin tablets, Prednisone tablets, Community-Acquired Pneumonia, Adult, [id number] Referrals: Subhash Petit MD [Resident] - - Discharge Summary/Plan Comment DC Time >30 min.: No - Patient Data Vitals - Most Recent: Last Vital Signs Temp 97.3 F 03/12/20 11:17 Pulse 94 03/12/20 11:17 Resp 14 03/12/20 11:17 BP 137/100 H 03/12/20 11:17 Pulse Ox 100 03/12/20 11:17 Weight - Most Recent: 78.018 kg I&O - Last 24 hours: Intake & Output 03/11/20 03/12/20 03/12/20 22:59 06:59 14:59 Intake Total 370 Output Total 500 Balance -130 Lab Results - Last 24 hrs: Laboratory Results - last 24 hr 03/11/20 03/11/20 03/11/20 Range/Units 20:01 20:09 20:09 WBC 6.29 (4.0-11.0) K/uL RBC 3.33 L (4.30-5.90) M/uL Hgb 10.8 L (12.0-16.0) g/dL Hct 32.4 L (36.0-46.0) % MCV 97.3 (80.0-98.0) fL MCH 32.4 H (27.0-32.0) pg MCHC 33.3 (31.0-37.0) g/dL RDW Std Deviation 45.1 (28.0-62.0) fl RDW Coeff of Fatimah 13 (11.0-15.0) % Plt Count 217 (150-400) K/uL MPV 10.10 (7.40-12.00) fL Add Manual Diff YES Neutrophils % (Manual) 77 (48.0-80.0) % Band Neutrophils % 6 % Lymphocytes % (Manual) 12 L (16.0-40.0) % Monocytes % (Manual) 3 (0.0-15.0) % Eosinophils % (Manual) 2 (0.0-7.0) % Absolute Seg Neuts 4.8 (1.4-5.7) Band Neutrophils # 0.4 Lymphocytes # (Manual) 0.8 (0.6-2.4) Monocytes # (Manual) 0.2 (0.0-0.8) Eosinophils # (Manual) 0.1 (0.0-0.7) ESR (0-19) mm/hr Lactate (0.20-2.00) mmol/L Sodium 132 L (136-145) mmol/L Potassium 4.1 (3.5-5.1) mmol/L Chloride 100 (98-107) mmol/L Carbon Dioxide 25.4 (21.0-32.0) mmol/L BUN 12 (7.0-18.0) mg/dL Creatinine 1.2 H (0.6-1.0) mg/dL Est Cr Clr Drug Dosing 65.34 mL/min Estimated GFR (MDRD) 53.5 ml/min Glucose 100 (74-106) mg/dL Calcium 8.6 (8.5-10.1) mg/dL Urine Color Urine Appearance Urine pH (5.0-8.0) Ur Specific Ash (1.001-1.035) Urine Protein (NEGATIVE) mg/dL Urine Glucose (UA) (NEGATIVE) mg/dL Urine Ketones (NEGATIVE) mg/dL Urine Occult Blood (NEGATIVE) Urine Nitrite (NEGATIVE) Urine Bilirubin (NEGATIVE) Urine Urobilinogen (<2.0) EU/dL Ur Leukocyte Esterase (NEGATIVE) Urine RBC (0-2/HPF) Urine WBC (0-5/HPF) Ur Epithelial Cells (NONE-FEW) Urine Bacteria (NEGATIVE) Urine Opiates Screen (NEGATIVE) Ur Oxycodone Screen (NEGATIVE) Urine Methadone Screen (NEGATIVE) Ur Barbiturates Screen (NEGATIVE) Ur Phencyclidine Scrn (NEGATIVE) Ur Amphetamine Screen (NEGATIVE) U Methamphetamines Scrn (NEGATIVE) U Benzodiazepines Scrn (NEGATIVE) U Cocaine Metab Screen (NEGATIVE) U Marijuana (THC) Screen (NEGATIVE) SARS Virus RNA (PCR) NEGATIVE (NEGATIVE) 03/11/20 03/11/20 03/12/20 Range/Units 20:09 20:09 02:50 WBC (4.0-11.0) K/uL RBC (4.30-5.90) M/uL Hgb (12.0-16.0) g/dL Hct (36.0-46.0) % MCV (80.0-98.0) fL MCH (27.0-32.0) pg MCHC (31.0-37.0) g/dL RDW Std Deviation (28.0-62.0) fl RDW Coeff of Fatimah (11.0-15.0) % Plt Count (150-400) K/uL MPV (7.40-12.00) fL Add Manual Diff Neutrophils % (Manual) (48.0-80.0) % Band Neutrophils % % Lymphocytes % (Manual) (16.0-40.0) % Monocytes % (Manual) (0.0-15.0) % Eosinophils % (Manual) (0.0-7.0) % Absolute Seg Neuts (1.4-5.7) Band Neutrophils # Lymphocytes # (Manual) (0.6-2.4) Monocytes # (Manual) (0.0-0.8) Eosinophils # (Manual) (0.0-0.7) ESR 99 H (0-19) mm/hr Lactate 0.7 (0.20-2.00) mmol/L Sodium (136-145) mmol/L Potassium (3.5-5.1) mmol/L Chloride (98-107) mmol/L Carbon Dioxide (21.0-32.0) mmol/L BUN (7.0-18.0) mg/dL Creatinine (0.6-1.0) mg/dL Est Cr Clr Drug Dosing mL/min Estimated GFR (MDRD) ml/min Glucose (74-106) mg/dL Calcium (8.5-10.1) mg/dL Urine Color YELLOW Urine Appearance CLEAR Urine pH 6.0 (5.0-8.0) Ur Specific Ash 1.015 (1.001-1.035) Urine Protein 100 H (NEGATIVE) mg/dL Urine Glucose (UA) NEGATIVE (NEGATIVE) mg/dL Urine Ketones NEGATIVE (NEGATIVE) mg/dL Urine Occult Blood NEGATIVE (NEGATIVE) Urine Nitrite NEGATIVE (NEGATIVE) Urine Bilirubin NEGATIVE (NEGATIVE) Urine Urobilinogen 0.2 (<2.0) EU/dL Ur Leukocyte Esterase NEGATIVE (NEGATIVE) Urine RBC 0-1 (0-2/HPF) Urine WBC 0-1 (0-5/HPF) Ur Epithelial Cells RARE (NONE-FEW) Urine Bacteria RARE (NEGATIVE) Urine Opiates Screen (NEGATIVE) Ur Oxycodone Screen (NEGATIVE) Urine Methadone Screen (NEGATIVE) Ur Barbiturates Screen (NEGATIVE) Ur Phencyclidine Scrn (NEGATIVE) Ur Amphetamine Screen (NEGATIVE) U Methamphetamines Scrn (NEGATIVE) U Benzodiazepines Scrn (NEGATIVE) U Cocaine Metab Screen (NEGATIVE) U Marijuana (THC) Screen (NEGATIVE) SARS Virus RNA (PCR) (NEGATIVE) 03/12/20 03/12/20 03/12/20 Range/Units 02:50 05:53 05:53 WBC 4.14 (4.0-11.0) K/uL RBC 3.17 L (4.30-5.90) M/uL Hgb 10.2 L (12.0-16.0) g/dL Hct 30.8 L (36.0-46.0) % MCV 97.2 (80.0-98.0) fL MCH 32.2 H (27.0-32.0) pg MCHC 33.1 (31.0-37.0) g/dL RDW Std Deviation 43.6 (28.0-62.0) fl RDW Coeff of Fatimah 13 (11.0-15.0) % Plt Count 208 (150-400) K/uL MPV 10.70 (7.40-12.00) fL Add Manual Diff Neutrophils % (Manual) (48.0-80.0) % Band Neutrophils % % Lymphocytes % (Manual) (16.0-40.0) % Monocytes % (Manual) (0.0-15.0) % Eosinophils % (Manual) (0.0-7.0) % Absolute Seg Neuts (1.4-5.7) Band Neutrophils # Lymphocytes # (Manual) (0.6-2.4) Monocytes # (Manual) (0.0-0.8) Eosinophils # (Manual) (0.0-0.7) ESR (0-19) mm/hr Lactate (0.20-2.00) mmol/L Sodium 138 (136-145) mmol/L Potassium 4.3 (3.5-5.1) mmol/L Chloride 105 (98-107) mmol/L Carbon Dioxide 22.8 (21.0-32.0) mmol/L BUN 13 (7.0-18.0) mg/dL Creatinine 1.0 (0.6-1.0) mg/dL Est Cr Clr Drug Dosing 82.97 mL/min Estimated GFR (MDRD) > 60.0 ml/min Glucose 134 H (74-106) mg/dL Calcium 8.1 L (8.5-10.1) mg/dL Urine Color Urine Appearance Urine pH (5.0-8.0) Ur Specific Ash (1.001-1.035) Urine Protein (NEGATIVE) mg/dL Urine Glucose (UA) (NEGATIVE) mg/dL Urine Ketones (NEGATIVE) mg/dL Urine Occult Blood (NEGATIVE) Urine Nitrite (NEGATIVE) Urine Bilirubin (NEGATIVE) Urine Urobilinogen (<2.0) EU/dL Ur Leukocyte Esterase (NEGATIVE) Urine RBC (0-2/HPF) Urine WBC (0-5/HPF) Ur Epithelial Cells (NONE-FEW) Urine Bacteria (NEGATIVE) Urine Opiates Screen NEGATIVE (NEGATIVE) Ur Oxycodone Screen NEGATIVE (NEGATIVE) Urine Methadone Screen NEGATIVE (NEGATIVE) Ur Barbiturates Screen NEGATIVE (NEGATIVE) Ur Phencyclidine Scrn NEGATIVE (NEGATIVE) Ur Amphetamine Screen NEGATIVE (NEGATIVE) U Methamphetamines Scrn NEGATIVE (NEGATIVE) U Benzodiazepines Scrn NEGATIVE (NEGATIVE) U Cocaine Metab Screen NEGATIVE (NEGATIVE) U Marijuana (THC) Screen POSITIVE (NEGATIVE) SARS Virus RNA (PCR) (NEGATIVE) Med Orders - Current: Current Medications Aspirin (Aspirin) 81 mg PO DAILY [facility] Last Admin: 03/12/20 08:47 Dose: 81 mg Documented by: Enoxaparin Sodium (Lovenox) 40 mg SUBCUT Q24H [facility] Levofloxacin/Dextrose 750 mg/ (Premix) 150 mls @ 100 mls/hr IV Q24H [facility] Labetalol HCl (Normodyne) 100 mg PO BID [facility] Last Admin: 03/12/20 08:48 Dose: 100 mg Documented by: Levetiracetam (Keppra) 1,000 mg PO BID [facility] Last Admin: 03/12/20 08:48 Dose: 1,000 mg Documented by: Discontinued Medications Acetaminophen (Tylenol Extra Strength) 1,000 mg PO ONETIME ONE Stop: 03/11/20 21:23 Last Admin: 03/11/20 21:26 Dose: 1,000 mg Documented by: Acetaminophen (Tylenol Extra Strength) Confirm Administered Dose 1,000 mg .ROUTE .STK-MED ONE Stop: 03/11/20 21:25 Last Admin: 03/11/20 22:11 Dose: Not Given Documented by: Albuterol (Ventolin Hfa) 1 gm INH ONETIME ONE Stop: 03/11/20 21:04 Last Admin: 03/11/20 22:11 Dose: Not Given Documented by: Albuterol (Ventolin Hfa) Confirm Administered Dose 18 gm .ROUTE .STK-MED ONE Stop: 03/11/20 21:10 Last Admin: 03/11/20 21:15 Dose: 1 inh Documented by: Enoxaparin Sodium (Lovenox) 40 mg SUBCUT ONETIME ONE Stop: 03/12/20 00:16 Last Admin: 03/12/20 00:38 Dose: 40 mg Documented by: Sodium Chloride (Normal Saline) 1,000 mls @ 999 mls/hr IV STAT ONE Stop: 03/11/20 20:51 Last Admin: 03/11/20 20:12 Dose: 999 mls/hr Documented by: Levofloxacin/Dextrose 750 mg/ (Premix) 150 mls @ 100 mls/hr IV ONETIME ONE Stop: 03/12/20 01:44 Last Admin: 03/12/20 00:39 Dose: 100 mls/hr Documented by: Ketorolac Tromethamine (Toradol) 60 mg IM ONETIME ONE Stop: 03/11/20 19:48 Last Admin: 03/11/20 20:12 Dose: Not Given Documented by: Ketorolac Tromethamine (Toradol) 30 mg IVPUSH ONETIME ONE Stop: 03/11/20 19:53 Last Admin: 03/11/20 20:11 Dose: 30 mg Documented by: Prednisone (Prednisone) 40 mg PO ONETIME ONE Stop: 03/11/20 21:04 Last Admin: 03/11/20 21:14 Dose: 40 mg Documented by: <Abdullahi Bautista - Last Filed: 03/26/20 11:42> Discharge Summary - Referral to Home Health Primary Care Physician: PCP Not In Area - Patient Data Vitals - Most Recent: Last Vital Signs Temp 36.3 C 03/12/20 11:17 Pulse 94 03/12/20 11:17 Resp 14 03/12/20 11:17 BP 137/100 H 03/12/20 11:17 Pulse Ox 100 03/12/20 11:17 Med Orders - Current: Current Medications Discontinued Medications Acetaminophen (Tylenol Extra Strength) 1,000 mg PO ONETIME ONE Stop: 03/11/20 21:23 Last Admin: 03/11/20 21:26 Dose: 1,000 mg Documented by: Acetaminophen (Tylenol Extra Strength) Confirm Administered Dose 1,000 mg .ROUTE .STK-MED ONE Stop: 03/11/20 21:25 Last Admin: 03/11/20 22:11 Dose: Not Given Documented by: Albuterol (Ventolin Hfa) 1 gm INH ONETIME ONE Stop: 03/11/20 21:04 Last Admin: 03/11/20 22:11 Dose: Not Given Documented by: Albuterol (Ventolin Hfa) Confirm Administered Dose 18 gm .ROUTE .STK-MED ONE Stop: 03/11/20 21:10 Last Admin: 03/11/20 21:15 Dose: 1 inh Documented by: Aspirin (Aspirin) 81 mg PO DAILY [facility] Last Admin: 03/12/20 08:47 Dose: 81 mg Documented by: Enoxaparin Sodium (Lovenox) 40 mg SUBCUT Q24H [facility] Enoxaparin Sodium (Lovenox) 40 mg SUBCUT ONETIME ONE Stop: 03/12/20 00:16 Last Admin: 03/12/20 00:38 Dose: 40 mg Documented by: Sodium Chloride (Normal Saline) 1,000 mls @ 999 mls/hr IV STAT ONE Stop: 03/11/20 20:51 Last Admin: 03/11/20 20:12 Dose: 999 mls/hr Documented by: Levofloxacin/Dextrose 750 mg/ (Premix) 150 mls @ 100 mls/hr IV Q24H [facility] Levofloxacin/Dextrose 750 mg/ (Premix) 150 mls @ 100 mls/hr IV ONETIME ONE Stop: 03/12/20 01:44 Last Admin: 03/12/20 00:39 Dose: 100 mls/hr Documented by: Ketorolac Tromethamine (Toradol) 60 mg IM ONETIME ONE Stop: 03/11/20 19:48 Last Admin: 03/11/20 20:12 Dose: Not Given Documented by: Ketorolac Tromethamine (Toradol) 30 mg IVPUSH ONETIME ONE Stop: 03/11/20 19:53 Last Admin: 03/11/20 20:11 Dose: 30 mg Documented by: Labetalol HCl (Normodyne) 100 mg PO BID [facility] Last Admin: 03/12/20 08:48 Dose: 100 mg Documented by: Levetiracetam (Keppra) 1,000 mg PO BID [facility] Last Admin: 03/12/20 08:48 Dose: 1,000 mg Documented by: Prednisone (Prednisone) 40 mg PO ONETIME ONE Stop: 03/11/20 21:04 Last Admin: 03/11/20 21:14 Dose: 40 mg Documented by: - Free Text/Narrative Note: I have seen and evaluated the patient. I have discussed findings and treatment plan with resident. I agree with the assessment and plan as outlined in the following note.
[2020-03-12] MEDS ORDERED: Enoxaparin 40 MG/0.4 ML Syringe SUBCUT SCH (21:00)
[2020-03-12] MEDS ORDERED: Levofloxacin/Dextrose 5%-Water 750 MG in Premix Bag 1 BAG IV SCH (21:00)
== END 2020-03-12 13:00 | disposition home or self-care (01) ==
LOC: MW.ED 19:28 → MW.MS 21:31
PROVIDERS: ADMIT Internal Medicine; ATTEND Internal Medicine
DX: J18.9 Pneumonia, unspecified organism (principal); E11.9 Type 2 diabetes mellitus without complications; I10 Essential (primary) hypertension; Z79.899 Other long term (current) drug therapy; Z79.82 Long term (current) use of aspirin; Z86.69 Personal history of other diseases of the nervous system and sense organs; Z20.828 Contact with and (suspected) exposure to other viral communicable diseases
CPT/HCPCS: 36415; 71045; 80048; 80305; 81001; 83605; 85025; 85027; 85652; 87040; 87635; 96361; 96365; 96372; 96375; 99285; A9270; G0378; J1650; J1885; J1956; J7030; 96374; 99219; 99283; J3535-GY; U0002

== ENCOUNTER 2020-04-01 20:10 | Emergency (ER) | payer MEDICAID, OTHER ==
[2020-04-01] MEDS ORDERED: Sodium Chloride 0.9% 1,000 ML IV ONE (20:33)
[2020-04-01] MEDS ORDERED: Ondansetron 4 MG/2 ML SDV IVPUSH ONE (21:09)
[2020-04-01] MEDS ORDERED: HYDROmorphone 1 MG/ML Syringe IVPUSH ONE (21:09)
--- NOTE | 2020-04-01 21:13 | EDM.PDOC ---
ED HPI GENERAL MEDICAL PROBLEM - General Chief Complaint: Abdominal Pain Stated Complaint: UPPER ABDOMINAL PAIN Time Seen by Provider: 04/01/20 20:32 Source of Information: Reports: Patient History Limitations: Reports: No Limitations - History of Present Illness INITIAL COMMENTS - FREE TEXT/NARRATIVE: HISTORY AND PHYSICAL: History of present illness: Patient is a 29-year-old female who presents to the emergency room with complaints of nausea, vomiting and left upper abdominal pain. She states she did go out last night and have some alcoholic beverages, although feels she did not "overdo it". Patient denies any fever, chills, headache, change in vision, syncope or near syncope. Denies any chest pain, back pain, shortness of breath or cough. Denies any diarrhea, constipation or dysuria. Has not noted any blood in urine or stool. Denies any concern of . Patient has been eating and drinking appropriately. Patient has a past medical history of hepatitis C, seizure disorder, drug abuse and routine marijuana use. Review of systems: As per history of present illness and below otherwise all systems reviewed and negative. Past medical history: As per history of present illness and as reviewed below otherwise noncontributory. Surgical history: As per history of present illness and as reviewed below otherwise noncontributory. Social history: See social history for further information Family history: As per history of present illness and as reviewed below otherwise noncontributory. Physical exam: General: Well developed and well nourished 29 year old female. Alert and orientated x 3. Nontoxic in appearance and in no acute distress. Vital signs are stable and have been reviewed by me. Nursing notes were reviewed. HEENT: Atraumatic, normocephalic, pupils equal and reactive bilaterally, negative for conjunctival pallor or scleral icterus, mucous membranes moist, trachea midline. No drooling or trismus noted. No meningeal signs. No hot potato voice noted. Lungs: Clear to auscultation, breath sounds equal bilaterally, chest nontender. Normal work of breathing, no accessory muscles used. Heart: S1S2, regular rate and rhythm without overt murmur Abdomen: Soft, nondistended, LUQ tenderness. Negative for masses or hepatosplenomegaly. Negative for costovertebral tenderness. Pelvis: Stable nontender. Skin: Intact, warm, dry. No lesions or rashes noted. Hematologic: No petechiae or purpra. Mucosa appropriate color and normal nail bed color and refill. Extremities: Atraumatic, moves all extremities per self without difficulty or deficits, negative for cords or calf pain. Neurovascular unremarkable. Neuro: Awake, alert, oriented. Cranial nerves II through XII unremarkable. Cerebellum unremarkable. Motor and sensory unremarkable throughout. Exam nonfocal. Psychiatric: Mood and affect are appropriate. Normal thought process. Answering questions appropriately. Notes: Dr Haynes was informed of this patient and will assume care as labs and imagining results are pending. Diagnostics: CBC, CMP, UA, urine , lipase Therapeutics: IV fluid, Dilaudid, Zofran Impression: Abdominal Pain Definitive disposition and diagnosis as appropriate pending reevaluation and review of above. Right Lower Abdomen Pain Score (Numeric/FACES): 8 - Related Data Allergies Allergy/AdvReac Type Severity Reaction Status Date / Time No Known Allergies Allergy Verified 04/01/20 20:49 Home Meds: Home Meds Labetalol [Normodyne] 100 mg PO BID 02/17/18 [History] Prenat 115/Iron Fum/Folic/Dss [ 19 Tablet] 1 tab PO DAILY 02/17/18 [History] levETIRAcetam [Keppra] 1,000 mg PO BID 02/17/18 [History] Cholecalciferol (Vitamin D3) [Vitamin D3] 5,000 unit PO DAILY 10/20/19 [History] Iron Carb,Gl/FA/B12/C/Docusate [Ferralet 90 Dual-Iron] 1 tab PO TID 10/20/19 [History] Past Medical History - Past Health History Medical/Surgical History: Denies Medical/Surgical History HEENT History: Reports: Other (See Below) Other HEENT History: wears glasses Cardiovascular History: Reports: Hypertension Respiratory History: Reports: None Gastrointestinal History: Reports: None Genitourinary History: Reports: None 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 MANAGER 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: 2 2nd 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 loses Musculoskeletal History: Reports: None Neurological History: Reports: Seizure Other Neuro History: hx of Epilepsy- last seizure was 6 months ago Psychiatric History: Reports: None Endocrine/Metabolic History: Reports: None Hematologic History: Reports: Anticoagulation Therapy, None Other Hematologic History: Taking lovonix sq daily since Immunologic History: Reports: None Oncologic (Cancer) History: Reports: None Dermatologic History: Reports: None - Infectious Disease History Infectious Disease History: Reports: Hepatitis C - Past Surgical History Head Surgeries/Procedures: Reports: None Social & Family History - Family History Family Medical History: Unobtainable Endocrine/Metabolic: Reports: Diabetes, type II - Tobacco Use Smoking Status *Q: Never Smoker Second Hand Smoke Exposure: No - Caffeine Use Caffeine Use: Reports: None - Recreational Drug Use Recreational Drug Use: Yes Recreational Drug Type: Reports: Marijuana/Hashish Recreational Drug Use Frequency: Daily ED ROS GENERAL - Review of Systems Review Of Systems: Comprehensive ROS is negative, except as noted in HPI. ED EXAM, GI/ABD - Physical Exam Exam: See Below (See dictation) Course - Vital Signs Last Recorded V/S: Last Vital Signs Temp 97.8 F 04/01/20 20:46 Pulse 110 H 04/02/20 00:06 Resp 18 04/02/20 00:06 BP 130/102 H 04/02/20 00:06 Pulse Ox 98 04/02/20 00:06 - Orders/Labs/Meds Labs: Laboratory Tests 04/01/20 04/01/20 04/01/20 Range/Units 20:58 20:58 21:35 WBC 7.42 (4.0-11.0) K/uL RBC 4.06 L (4.30-5.90) M/uL Hgb 13.0 (12.0-16.0) g/dL Hct 40.0 (36.0-46.0) % MCV 98.5 H (80.0-98.0) fL MCH 32.0 (27.0-32.0) pg MCHC 32.5 (31.0-37.0) g/dL RDW Std Deviation 54.6 (28.0-62.0) fl RDW Coeff of Fatimah 15 (11.0-15.0) % Plt Count 217 (150-400) K/uL MPV 10.50 (7.40-12.00) fL Neut % (Auto) 78.6 (48.0-80.0) % Lymph % (Auto) 12.9 L (16.0-40.0) % Lane % (Auto) 7.5 (0.0-15.0) % Eos % (Auto) 0.9 (0.0-7.0) % Baso % (Auto) 0.1 (0.0-1.5) % Neut # (Auto) 5.8 H (1.4-5.7) K/uL Lymph # (Auto) 1.0 (0.6-2.4) K/uL Lane # (Auto) 0.6 (0.0-0.8) K/uL Eos # (Auto) 0.1 (0.0-0.7) K/uL Baso # (Auto) 0.0 (0.0-0.1) K/uL Nucleated RBC % 0.0 /100WBC Nucleated RBCs # 0 K/uL Sodium (136-145) mmol/L Potassium (3.5-5.1) mmol/L Chloride (98-107) mmol/L Carbon Dioxide (21.0-32.0) mmol/L BUN (7.0-18.0) mg/dL Creatinine (0.6-1.0) mg/dL Est Cr Clr Drug Dosing mL/min Estimated GFR (MDRD) ml/min Glucose (74-106) mg/dL Calcium (8.5-10.1) mg/dL Total Bilirubin (0.2-1.0) mg/dL AST (15-37) IU/L ALT (14-63) IU/L Alkaline Phosphatase (46-116) U/L Total Protein (6.4-8.2) g/dL Albumin (3.4-5.0) g/dL Globulin (2.6-4.0) g/dL Albumin/Globulin Ratio (0.9-1.6) Lipase (73-393) U/L Urine Color YELLOW Urine Appearance SLT CLOUDY Urine pH 6.0 (5.0-8.0) Ur Specific [place] >= 1.030 (1.001-1.035) Urine Protein >=300 H (NEGATIVE) mg/dL Urine Glucose (UA) NEGATIVE (NEGATIVE) mg/dL Urine Ketones NEGATIVE (NEGATIVE) mg/dL Urine Occult Blood SMALL H (NEGATIVE) Urine Nitrite NEGATIVE (NEGATIVE) Urine Bilirubin SMALL H (NEGATIVE) Urine Ictotest NEGATIVE Urine Urobilinogen 0.2 (<2.0) EU/dL Ur Leukocyte Esterase NEGATIVE (NEGATIVE) U Hyaline Cast (Auto) 0-2 (0-2/LPF) Urine RBC 1-3 (0-2/HPF) Urine WBC 1-4 (0-5/HPF) Ur Epithelial Cells FEW (NONE-FEW) Urine Bacteria FEW (NEGATIVE) Urine Mucus LIGHT (NONE-MOD) Urine HCG, Qual NEGATIVE (NEGATIVE) 04/01/20 Range/Units 21:35 WBC (4.0-11.0) K/uL RBC (4.30-5.90) M/uL Hgb (12.0-16.0) g/dL Hct (36.0-46.0) % MCV (80.0-98.0) fL MCH (27.0-32.0) pg MCHC (31.0-37.0) g/dL RDW Std Deviation (28.0-62.0) fl RDW Coeff of Fatimah (11.0-15.0) % Plt Count (150-400) K/uL MPV (7.40-12.00) fL Neut % (Auto) (48.0-80.0) % Lymph % (Auto) (16.0-40.0) % Lane % (Auto) (0.0-15.0) % Eos % (Auto) (0.0-7.0) % Baso % (Auto) (0.0-1.5) % Neut # (Auto) (1.4-5.7) K/uL Lymph # (Auto) (0.6-2.4) K/uL Lane # (Auto) (0.0-0.8) K/uL Eos # (Auto) (0.0-0.7) K/uL Baso # (Auto) (0.0-0.1) K/uL Nucleated RBC % /100WBC Nucleated RBCs # K/uL Sodium 135 L (136-145) mmol/L Potassium 2.8 L (3.5-5.1) mmol/L Chloride 97 L (98-107) mmol/L Carbon Dioxide 28.2 (21.0-32.0) mmol/L BUN 18 (7.0-18.0) mg/dL Creatinine 1.2 H (0.6-1.0) mg/dL Est Cr Clr Drug Dosing 65.34 mL/min Estimated GFR (MDRD) 53.5 ml/min Glucose 125 H (74-106) mg/dL Calcium 9.0 (8.5-10.1) mg/dL Total Bilirubin 0.7 (0.2-1.0) mg/dL AST 23 (15-37) IU/L ALT 26 (14-63) IU/L Alkaline Phosphatase 127 H (46-116) U/L Total Protein 8.9 H (6.4-8.2) g/dL Albumin 3.6 (3.4-5.0) g/dL Globulin 5.3 H (2.6-4.0) g/dL Albumin/Globulin Ratio 0.7 L (0.9-1.6) Lipase 97 (73-393) U/L Urine Color Urine Appearance Urine pH (5.0-8.0) Ur Specific [place] (1.001-1.035) Urine Protein (NEGATIVE) mg/dL Urine Glucose (UA) (NEGATIVE) mg/dL Urine Ketones (NEGATIVE) mg/dL Urine Occult Blood (NEGATIVE) Urine Nitrite (NEGATIVE) Urine Bilirubin (NEGATIVE) Urine Ictotest Urine Urobilinogen (<2.0) EU/dL Ur Leukocyte Esterase (NEGATIVE) U Hyaline Cast (Auto) (0-2/LPF) Urine RBC (0-2/HPF) Urine WBC (0-5/HPF) Ur Epithelial Cells (NONE-FEW) Urine Bacteria (NEGATIVE) Urine Mucus (NONE-MOD) Urine HCG, Qual (NEGATIVE) Meds: Medications Discontinued Medications Generic Name Dose Route Start Last Admin Trade Name Freq PRN Reason Stop Dose Admin Hydromorphone HCl 1 mg 04/01/20 21:09 04/01/20 21:28 Dilaudid IVPUSH 04/01/20 21:10 1 mg ONETIME ONE Administration Sodium Chloride 1,000 mls @ 999 mls/hr 04/01/20 20:33 04/01/20 21:40 Normal Saline IV 04/01/20 21:33 999 mls/hr STAT ONE Administration Potassium Chloride 40 meq/ 100 mls @ 25 mls/hr 04/01/20 22:21 Premix IV 04/02/20 02:20 ONETIME ONE Iopamidol 100 ml 04/01/20 22:48 04/01/20 22:49 Isovue-370 (76%) IVPUSH 04/01/20 22:49 100 ml ONETIME STA Administration Ondansetron HCl 4 mg 04/01/20 21:09 04/01/20 21:28 Zofran IVPUSH 04/01/20 21:10 4 mg ONETIME ONE Administration Potassium Chloride 40 meq 04/01/20 23:00 04/01/20 23:31 Potassium Chloride PO 04/01/20 23:01 40 meq ONETIME ONE Administration Departure - Departure Time of Disposition: 00:50 Disposition: Home, Self-Care 01 Clinical Impression: Abdominal pain Qualifiers: Abdominal location: left upper quadrant Qualified Code(s): R10.12 - Left upper quadrant pain - Discharge Information Instructions: Abdominal Pain, Adult, Ngyq-or-Mher Referrals: Lion Campbell MD [Primary Care Provider] - Forms: ED Department Discharge Sepsis Event Note (ED) - Evaluation Sepsis Screening Result: No Definite Risk - Focused Exam Vital Signs: Vital Signs Pulse Resp BP Pulse Ox 04/02/20 00:06 110 H 18 130/102 H 98
[2020-04-01 22:05] LABS: CARBON DIOXIDE,CO2 28.2 mmol/L (21.0-32.0); POTASSIUM,K 2.8 mmol/L (3.5-5.1)
[2020-04-01] MEDS ORDERED: Potassium Chloride Riders 40 MEQ in Premix Bag 1 BAG IV ONE (22:21)
[2020-04-01] MEDS ORDERED: Iopamidol 755 Mg/ML 100 ML Bottle IVPUSH STA (22:48)
[2020-04-01] MEDS ORDERED: Potassium Chloride 10% 20 MEQ/15 ML Soln 30 ML UD Cup PO ONE (23:00)
--- NOTE | 2020-04-01 23:38 | CT ---
INDICATION: Abdominal pain TECHNIQUE: CT abdomen and pelvis acquired with IV contrast. 100 cc Isovue 370 COMPARISON: 03/10/2020 FINDINGS: Lower chest: Areas of ground-glass appearance involving the right lower lobe. Liver: Unremarkable. Spleen: Unremarkable. Pancreas: Unremarkable. Gallbladder and bile ducts: Unremarkable. Kidneys: Unremarkable. Adrenal glands: Unremarkable. GI tract: Unremarkable. Appendix is normal. Vascular structures: Unremarkable. Lymph nodes: Unremarkable. Miscellaneous: Unremarkable. No free air or significant free fluid. Pelvic Organs: IUD present in the endometrial canal. 3.0 centimeter right ovarian cyst. Bones: Unremarkable for age. IMPRESSION: Definitive findings to explain the patient`s abdominal pain. Nonspecific areas of ground-glass appearance right lower lobe. IUD present in the endometrial canal. 0.0 centimeter right ovarian cyst. Please note that all CT scans at this facility use dose modulation, iterative reconstruction, and/or weight-based dosing when appropriate to reduce radiation dose to as low as reasonably achievable. Dictated by Keshawn Hayden MD @ Apr 01 2020 11:37PM Signed by Dr. Keshawn Hayden @ Apr 01 2020 11:37PM
--- NOTE | 2020-04-01 23:57 | PCM.SN.2 ---
- Free Text/Narrative Note: Patient was signed out to me by ABELARDO [place] pending CT abdomen pelvis with contrast and reevaluation. I did review PAC note and did have a discussion with the patient and at the time of my evaluation the patient was feeling better. The radiological images were viewed by myself along with reading the report from the radiologist. CT abdomen pelvis with IV contrast reveals no acute intra-abdominal pathology. There is an IUD present in a 3 cm right ovarian cyst. On reevaluation, the patient symptoms had completely resolved and was able to tolerate p.o. At this time I did discuss with the patient that there was nothing abnormal on her imaging except for a 3 cm right ovarian cyst. At the time of my evaluation the patient was tachycardic however the patient states that she missed her p.m. dose of labetalol and will take it at home. At this time the patient stable for discharge. She is to return for any new worsening symptoms. Disposition: The patient was discharged home in stable condition Clinical status: Fair Final diagnosis 1. Acute abdominal pain, unknown etiology
== END 2020-04-02 00:07 | disposition home or self-care (01) ==
LOC: MW.ED 20:10
DX: R10.12 Left upper quadrant pain (principal); R11.2 Nausea with vomiting, unspecified; I10 Essential (primary) hypertension; R56.9 Unspecified convulsions; Z79.899 Other long term (current) drug therapy
CPT/HCPCS: 36415; 74177; 80053; 81001; 81025; 83690; 85025; 96361; 96374; 96375; 99284; A9270; J1170; J2405; J7030; Q9967; 99283

== ENCOUNTER 2020-04-13 19:50 | Emergency (ER) | payer MEDICAID ==
[2020-04-13] MEDS ORDERED: Dicyclomine 10 MG Cap PO ONE (20:02)
[2020-04-13] MEDS ORDERED: Sodium Chloride 0.9% 10 ML Syringe FLUSH PRN (20:02)
[2020-04-13] MEDS ORDERED: Sodium Chloride 0.9% 2.5 ML Syringe FLUSH PRN (20:02)
[2020-04-13] MEDS ORDERED: Sodium Chloride 0.9% 1,000 ML IV ONE (20:02)
[2020-04-13] MEDS ORDERED: Ondansetron 4 MG/2 ML SDV IVPUSH ONE (20:02)
[2020-04-13] MEDS ORDERED: Alum Hydrox/Mag Hydrox/Simeth 15 ML, Lidocaine 2% 5 ML PO ONE ×2 (20:02)
[2020-04-13 20:52] LABS: CARBON DIOXIDE,CO2 29.3 mmol/L (21.0-32.0); POTASSIUM,K 3.7 mmol/L (3.5-5.1)
--- NOTE | 2020-04-13 20:58 | EDM.PDOC ---
ED HPI GENERAL MEDICAL PROBLEM - General Chief Complaint: Abdominal Pain Stated Complaint: ABDOMINAL PAIN Time Seen by Provider: 04/13/20 19:54 - History of Present Illness INITIAL COMMENTS - FREE TEXT/NARRATIVE: HISTORY AND PHYSICAL: History of present illness: Is a 29-year-old female with a history significant for hepatitis C as well as significant alcohol use disorder who presents ER today secondary to upper abdominal discomfort. Patient reports the pain is greatest in the midepigastric region. Patient denies any recent fevers, shakes, chills, nausea, vomiting, diarrhea. Patient reports that she was tolerating p.o.'s well today. Patient reports that she last drank approximately 1 hour prior to arrival. Patient denies any dysuria, frequency, urgency. Patient has any melena or bright red blood per rectum. Patient denies any cough cold or rhinorrhea. Review of systems: As per history of present illness and below otherwise all systems reviewed and negative. Past medical history: As per history of present illness and as reviewed below otherwise noncontributory. Surgical history: As per history of present illness and as reviewed below otherwise noncontributory. Social history: No reported history of drug or alcohol abuse. Family history: As per history of present illness and as reviewed below otherwise noncontributory. Physical exam: HEENT: Atraumatic, normocephalic, pupils reactive, negative for conjunctival pallor or scleral icterus, mucous membranes moist, throat clear, neck supple, nontender, trachea midline. Lungs: Clear to auscultation, breath sounds equal bilaterally, chest nontender. Heart: S1S2, regular, negative for clicks, rubs, or JVD. Abd: Soft, nondistended, no rebound/guarding, no psoas or obturator signs, no tenderness at Mcberney's point, no Muñiz's sign. Pt does not present with an exam that would be consistent with an acute surgical abdomen at this time, mild tenderness palpation midepigastric region. Pelvis: Stable nontender. Genitourinary: Deferred. Rectal: Deferred. Extremities: Atraumatic, negative for cords or calf pain. Neurovascular unremarkable. Neuro: Awake, alert, oriented. Cranial nerves II through XII unremarkable. Cerebellum unremarkable. Motor and sensory unremarkable throughout. Exam nonfocal. Diagnostics: CBC, CMP, lipase, urinalysis, urine test Therapeutics: GI cocktail/Bentyl NSS x1 L IV Assessment and plan: This is a 29-year-old female with a history significant for alcohol use disorder who presents ER today complaining of abdominal discomfort. Patient was seen in the ED approximately 1 to 2 weeks ago for similar complaints and had a CT scan of the abdomen pelvis at that time. Patient CT scan of the abdomen pelvis at that time did not reveal any acute pathology or abnormalities. Patient's vital signs in the ED are all within normal limits. Patient's abdominal exam is not consistent with an acute surgical abdomen. Patient does have some mild midepigastric tenderness to palpation. Given her history of alcohol use disorder, patient will have a CBC, CMP, lipase ordered. Patient reports her last drink was within 1 to 2 hours prior to arrival to the ED. Patient reports that she was able to keep that down and did not have any emesis. Patient will be given Zofran as well as a GI cocktail and Bentyl and will be reevaluated while in the ED. 9:06 PM: Patient reevaluated by me. Patient reports no significant change in her abdominal discomfort. Patient's ER work-up is been unremarkable without any significant abnormalities detected in her labs. Patient vital signs are all within normal limits. Repeat abdominal examination is unchanged. Patient still presents with a nonsurgical abdominal exam. Patient has mild discomfort in her midepigastric region. Patient abdomen is soft, nondistended, no rebound, no guarding, no tenderness at McBurney's point, no Muñiz's sign. At this time, I have had a long discussion with the patient that I feel that her abdominal discomfort is highly related to her alcohol use disorder. We will start the patient on Prilosec 20 mg p.o. daily and have strongly encouraged her to talk to her primary care physician or the internal medicine clinic to assist her with getting to an alcohol detox program. Patient was encouraged to return the ED if she starts having any worsening abdominal discomfort or any new or concerning symptoms. Have discussed with her concerns regarding episodes of dark black stools or blood in her stool. I discussed with her to return to the ED if she has any coffee-ground emesis. Patient will continue tolerating a bland diet over the next 1 to 2 days and needs to see her doctor to be reevaluated at that time. Reassessment at the time of disposition demonstrates that the patient is in no acute distress. The patient has remained stable throughout the entire ED visit and is without objective evidence for acute process requiring urgent intervention or hospitalization. The patient is stable for discharge, counseling is provided as documented above, discussed symptomatic treatment and specific conditions for return. I have spoken with the patient/caregiver and discussed todays findings, in addition to providing specific details for the plan of care. Questions are answered and there is agreement with the plan. Definitive disposition and diagnosis as appropriate pending reevaluation and review of above. abdominal Pain Score (Numeric/FACES): 9 - Related Data Allergies Allergy/AdvReac Type Severity Reaction Status Date / Time No Known Allergies Allergy Verified 04/13/20 19:56 Home Meds: Home Meds Labetalol [Normodyne] 100 mg PO BID 02/17/18 [History] Prenat 115/Iron Fum/Folic/Dss [ 19 Tablet] 1 tab PO DAILY 02/17/18 [History] levETIRAcetam [Keppra] 1,000 mg PO BID 02/17/18 [History] Cholecalciferol (Vitamin D3) [Vitamin D3] 5,000 unit PO DAILY 10/20/19 [History] Iron Carb,Gl/FA/B12/C/Docusate [Ferralet 90 Dual-Iron] 1 tab PO TID 10/20/19 [History] Omeprazole Magnesium [Prilosec Otc] 20 mg PO DAILY #30 tablet.dr 04/13/20 [Rx] Ondansetron [Zofran ODT] 4 mg PO Q6H PRN #12 tab.dis 04/13/20 [Rx] Past Medical History - Past Health History Medical/Surgical History: Denies Medical/Surgical History HEENT History: Reports: Other (See Below) Other HEENT History: wears glasses Cardiovascular History: Reports: Hypertension Respiratory History: Reports: None Gastrointestinal History: Reports: None Genitourinary History: Reports: None 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 KNITTER WIRE MESH History: 2 2nd trimester loses Musculoskeletal History: Reports: None Neurological History: Reports: Seizure Other Neuro History: hx of Epilepsy- last seizure was 6 months ago Psychiatric History: Reports: None Endocrine/Metabolic History: Reports: None Hematologic History: Reports: Anticoagulation Therapy, None Other Hematologic History: Taking lovonix sq daily since Immunologic History: Reports: None Oncologic (Cancer) History: Reports: None Dermatologic History: Reports: None - Infectious Disease History Infectious Disease History: Reports: Hepatitis C - Past Surgical History Head Surgeries/Procedures: Reports: None Social & Family History - Family History Family Medical History: Unobtainable Endocrine/Metabolic: Reports: Diabetes, type II - Tobacco Use Tobacco Use Status *Q: Never Tobacco User - Caffeine Use Caffeine Use: Reports: None - Recreational Drug Use Recreational Drug Use: No ED ROS GENERAL - Review of Systems Review Of Systems: See Below ED EXAM, GENERAL - Physical Exam Exam: See Below Course - Vital Signs Last Recorded V/S: Last Vital Signs Temp 96.6 F L 04/13/20 19:57 Pulse 76 04/13/20 19:57 Resp 20 04/13/20 19:57 BP 150/113 H 04/13/20 19:57 Pulse Ox 100 04/13/20 19:57 - Orders/Labs/Meds Orders: Active Orders 24 hr Category Date Time Status Sodium Chloride 0.9% [Saline Flush] Med 04/13/20 20:02 Active 10 ml FLUSH ASDIRECTED PRN Sodium Chloride 0.9% [Saline Flush] Med 04/13/20 20:02 Active 2.5 ml FLUSH ASDIRECTED PRN Saline Lock Insert [OM.PC] Stat Oth 04/13/20 20:02 Ordered Medication Orders Sodium Chloride (Saline Flush) 10 ml FLUSH ASDIRECTED PRN PRN Reason: Keep Vein Open Sodium Chloride (Saline Flush) 2.5 ml FLUSH ASDIRECTED PRN PRN Reason: Keep Vein Open Labs: Laboratory Tests 04/13/20 04/13/20 04/13/20 Range/Units 20:00 20:00 20:15 WBC 7.12 (4.0-11.0) K/uL RBC 3.89 L (4.30-5.90) M/uL Hgb 12.6 (12.0-16.0) g/dL Hct 39.1 (36.0-46.0) % MCV 100.5 H (80.0-98.0) fL MCH 32.4 H (27.0-32.0) pg MCHC 32.2 (31.0-37.0) g/dL RDW Std Deviation 52.6 (28.0-62.0) fl RDW Coeff of Fatimah 15 (11.0-15.0) % Plt Count 240 (150-400) K/uL MPV 10.10 (7.40-12.00) fL Neut % (Auto) 70.5 (48.0-80.0) % Lymph % (Auto) 20.9 (16.0-40.0) % [place] % (Auto) 5.1 (0.0-15.0) % Eos % (Auto) 3.2 (0.0-7.0) % Baso % (Auto) 0.3 (0.0-1.5) % Neut # (Auto) 5.0 (1.4-5.7) K/uL Lymph # (Auto) 1.5 (0.6-2.4) K/uL [place] # (Auto) 0.4 (0.0-0.8) K/uL Eos # (Auto) 0.2 (0.0-0.7) K/uL Baso # (Auto) 0.0 (0.0-0.1) K/uL Nucleated RBC % 0.0 /100WBC Nucleated RBCs # 0 K/uL Sodium (136-145) mmol/L Potassium (3.5-5.1) mmol/L Chloride (98-107) mmol/L Carbon Dioxide (21.0-32.0) mmol/L BUN (7.0-18.0) mg/dL Creatinine (0.6-1.0) mg/dL Est Cr Clr Drug Dosing mL/min Estimated GFR (MDRD) ml/min Glucose (74-106) mg/dL Calcium (8.5-10.1) mg/dL Total Bilirubin (0.2-1.0) mg/dL AST (15-37) IU/L ALT (14-63) IU/L Alkaline Phosphatase (46-116) U/L Total Protein (6.4-8.2) g/dL Albumin (3.4-5.0) g/dL Globulin (2.6-4.0) g/dL Albumin/Globulin Ratio (0.9-1.6) Lipase (73-393) U/L Urine Color YELLOW Urine Appearance CLEAR Urine pH 6.5 (5.0-8.0) Ur Specific [place] 1.015 (1.001-1.035) Urine Protein 30 H (NEGATIVE) mg/dL Urine Glucose (UA) NEGATIVE (NEGATIVE) mg/dL Urine Ketones NEGATIVE (NEGATIVE) mg/dL Urine Occult Blood TRACE-INTACT H (NEGATIVE) Urine Nitrite NEGATIVE (NEGATIVE) Urine Bilirubin NEGATIVE (NEGATIVE) Urine Urobilinogen 0.2 (<2.0) EU/dL Ur Leukocyte Esterase TRACE H (NEGATIVE) Urine RBC 0-2 (0-2/HPF) Urine WBC 0-2 (0-5/HPF) Ur Epithelial Cells OCCASIONAL (NONE-FEW) Urine Bacteria FEW (NEGATIVE) Urine HCG, Qual NEGATIVE (NEGATIVE) 04/13/ Range/Units 20:15 WBC (4.0-11.0) K/uL RBC (4.30-5.90) M/uL Hgb (12.0-16.0) g/dL Hct (36.0-46.0) % MCV (80.0-98.0) fL MCH (27.0-32.0) pg MCHC (31.0-37.0) g/dL RDW Std Deviation (28.0-62.0) fl RDW Coeff of Fatimah (11.0-15.0) % Plt Count (150-400) K/uL MPV (7.40-12.00) fL Neut % (Auto) (48.0-80.0) % Lymph % (Auto) (16.0-40.0) % [place] % (Auto) (0.0-15.0) % Eos % (Auto) (0.0-7.0) % Baso % (Auto) (0.0-1.5) % Neut # (Auto) (1.4-5.7) K/uL Lymph # (Auto) (0.6-2.4) K/uL [place] # (Auto) (0.0-0.8) K/uL Eos # (Auto) (0.0-0.7) K/uL Baso # (Auto) (0.0-0.1) K/uL Nucleated RBC % /100WBC Nucleated RBCs # K/uL Sodium 139 (136-145) mmol/L Potassium 3.7 (3.5-5.1) mmol/L Chloride 101 (98-107) mmol/L Carbon Dioxide 29.3 (21.0-32.0) mmol/L BUN 18 (7.0-18.0) mg/dL Creatinine 1.1 H (0.6-1.0) mg/dL Est Cr Clr Drug Dosing 71.28 mL/min Estimated GFR (MDRD) 59.1 ml/min Glucose 96 (74-106) mg/dL Calcium 9.1 (8.5-10.1) mg/dL Total Bilirubin 0.2 (0.2-1.0) mg/dL AST 22 (15-37) IU/L ALT 27 (14-63) IU/L Alkaline Phosphatase 112 (46-116) U/L Total Protein 8.2 (6.4-8.2) g/dL Albumin 3.4 (3.4-5.0) g/dL Globulin 4.8 H (2.6-4.0) g/dL Albumin/Globulin Ratio 0.7 L (0.9-1.6) Lipase 214 (73-393) U/L Urine Color Urine Appearance Urine pH (5.0-8.0) Ur Specific [place] (1.001-1.035) Urine Protein (NEGATIVE) mg/dL Urine Glucose (UA) (NEGATIVE) mg/dL Urine Ketones (NEGATIVE) mg/dL Urine Occult Blood (NEGATIVE) Urine Nitrite (NEGATIVE) Urine Bilirubin (NEGATIVE) Urine Urobilinogen (<2.0) EU/dL Ur Leukocyte Esterase (NEGATIVE) Urine RBC (0-2/HPF) Urine WBC (0-5/HPF) Ur Epithelial Cells (NONE-FEW) Urine Bacteria (NEGATIVE) Urine HCG, Qual (NEGATIVE) Meds: Medications Generic Name Dose Route Start Last Admin Trade Name Freq PRN Reason Stop Dose Admin Sodium Chloride 10 ml 04/13/20 20:02 Saline Flush FLUSH ASDIRECTED PRN Keep Vein Open Sodium Chloride 2.5 ml 04/13/20 20:02 Saline Flush FLUSH ASDIRECTED PRN Keep Vein Open Discontinued Medications Generic Name Dose Route Start Last Admin Trade Name Freq PRN Reason Stop Dose Admin Al Hydroxide/Mg Hydroxide 15 0 ml 04/13/20 20:02 04/13/20 20:20 ml/ Lidocaine HCl 5 ml PO 04/13/20 20:03 1 each ONETIME ONE Administration Dicyclomine HCl 20 mg 04/13/20 20:02 04/13/20 20:19 Bentyl PO 04/13/20 20:03 20 mg ONETIME ONE Administration Sodium Chloride 1,000 mls @ 999 mls/hr 04/13/20 20:02 04/13/20 20:19 Normal Saline IV 04/13/20 21:02 999 mls/hr .Bolus ONE Administration Ondansetron HCl 4 mg 04/13/20 20:02 04/13/20 20:20 Zofran IVPUSH 04/13/20 20:03 4 mg ONETIME ONE Administration Departure - Departure Time of Disposition: 21:08 Disposition: Home, Self-Care 01 Condition: Good Clinical Impression: Alcohol use disorder Abdominal pain Qualifiers: Abdominal location: left upper quadrant Qualified Code(s): R10.12 - Left upper quadrant pain - Discharge Information Instructions: Abdominal Pain, Adult, [id number], Alcohol Use Disorder, Gastritis, Adult, [id number] Referrals: PCP,None [Primary Care Provider] - Forms: ED Department Discharge Additional Instructions: Your work-up in the emergency department today did not reveal any acute cause for your abdominal pain. It is highly likely that your alcohol use is contributing greatly to the abdominal discomfort that you are feeling. You will be started on Prilosec to assist with coating your stomach. We strongly recommend that you stop drinking so much alcohol and talk to your family doctor to obtain assistance with alcohol detox. Please return to the ER if you start having any worsening abdominal pain, blood in your stool, dark black stools, or vomiting that appears to look like coffee grinds. The following information is given to patients seen in the emergency department who are being discharged to home. This information is to outline your options for follow-up care. We provide all patients seen in our emergency department with a follow-up referral. The need for follow-up, as well as the timing and circumstances, are variable depending upon the specifics of your emergency department visit. If you don't have a primary care physician on staff, we will provide you with a referral. We always advise you to contact your personal physician following an emergency department visit to inform them of the circumstance of the visit and for follow-up with them and/or the need for any referrals to a consulting specialist. The emergency department will also refer you to a specialist when appropriate. This referral assures that you have the opportunity for follow-up care with a specialist. All of these measure are taken in an effort to provide you with optimal care, which includes your follow-up. Under all circumstances we always encourage you to contact your private physician who remains a resource for coordinating your care. When calling for follow-up care, please make the office aware that this follow-up is from your recent emergency room visit. If for any reason you are refused follow-up, please contact the [facility] Emergency Department at and asked to speak to the emergency department charge nurse. [facility] - Internal Medicine [address] [place] [id number] Sepsis Event Note (ED) - Evaluation Sepsis Screening Result: No Definite Risk - Focused Exam Vital Signs: Vital Signs Temp Pulse Resp BP Pulse Ox 04/13/20 19:57 96.6 F L 76 20 150/113 H 100 - My Orders Last 24 Hours: My Active Orders 04/13/20 20:02 Sodium Chloride 0.9% [Saline Flush] 10 ml FLUSH ASDIRECTED PRN Sodium Chloride 0.9% [Saline Flush] 2.5 ml FLUSH ASDIRECTED PRN Saline Lock Insert [OM.PC] Stat - Assessment/Plan Last 24 Hours: My Active Orders 04/13/20 20:02 Sodium Chloride 0.9% [Saline Flush] 10 ml FLUSH ASDIRECTED PRN Sodium Chloride 0.9% [Saline Flush] 2.5 ml FLUSH ASDIRECTED PRN Saline Lock Insert [OM.PC] Stat
== END 2020-04-13 21:29 | disposition home or self-care (01) ==
LOC: MW.ED 19:50
DX: R10.12 Left upper quadrant pain (principal); R10.13 Epigastric pain; I10 Essential (primary) hypertension; G40.909 Epilepsy, unspecified, not intractable, without status epilepticus; Z79.899 Other long term (current) drug therapy; Z72.89 Other problems related to lifestyle
CPT/HCPCS: 36415; 80053; 81001; 81025; 83690; 85025; 96374; 99284; A9270; J2405; J7030